=== PATIENT | female | born 1995 | race Caucasian/White ===

== ENCOUNTER 2021-04-07 09:38 | Emergency (ER) | payer SELFPAY ==
[2021-04-07 09:57] LABS: Urine Blood Negative (Negative); Urine Glucose Negative (Negative); Urine Protein Negative (Negative); Urine Specific Gravity 1.025 (1.005-1.030); Urine pH 7.5 (5.0-7.0)
[2021-04-07 10:12] LABS: Urine Specific Gravity/Preg 1.025 (1.005-1.030)
[2021-04-07] MEDS ORDERED: MAGNES/ALUMIN/SIMET 30ML UCUP ONE (10:13)
[2021-04-07] MEDS ORDERED: MORPHINE 4 MG/ML SYR ONE (10:14)
[2021-04-07] MEDS ORDERED: LIDOCAINE VISCOUS 2% SOLN 15 ML UDC ONE (10:14)
[2021-04-07] MEDS ORDERED: ONDANSETRON 4 MG/2 ML VIAL ONE (10:14)
[2021-04-07] MEDS ORDERED: NA CHLORIDE 0.9% 1,000 ML ONE (10:14)
[2021-04-07] MEDS ORDERED: FAMOTIDINE 20 MG/2 ML VIAL IV ONE (10:15)
[2021-04-07 11:00] LABS: Absolute Lymphocytes (CBC) 2.7 K/uL (0.7-4.9); Basophils % 0.4 % (0-1.3); Hematocrit 40.8 % (36.0-45.0); Lymphocytes % 25.7 % (15.3-44.8); MPV 8.5 fL (7.6-11.3); RBC Red Blood Cell Count 4.43 M/uL (3.86-4.86)
[2021-04-07 11:02] LABS: ALT/SGPT 31 U/L (12-78); AST/SGOT 18 U/L (15-37); Albumin 4.1 g/dL (3.4-5.0); Alkaline Phosphatase 70 U/L (45-117); BUN Blood Urea Nitrogen 9 mg/dL (7-18); Bicarbonate 25 mmol/L (21-32); Bilirubin Direct < 0.1 mg/dL (0-0.2); Bilirubin Total 0.3 mg/dL (0.2-1.0); Glucose Level 107 mg/dL (74-106); Lipase 138 U/L (73-393); Potassium 3.7 mmol/L (3.5-5.1); Protein, Total 7.6 g/dL (6.4-8.2); Sodium Level 142 mmol/L (136-145)
--- NOTE | 2021-04-07 12:14 | RAD REPORT ---
EXAM DESCRIPTION: CTAbdomen Pelvis W Contrast - 04/07/2021 11:41 am CLINICAL HISTORY: Abdominal pain. ABD PAIN COMPARISON: No comparisons TECHNIQUE: Biphasic CT imaging of the abdomen and pelvis was performed with 100 ml non-ionic IV cont rast. All CT scans are performed using dose optimization technique as appropriate and may include automated exposure control or mA/KV adjustment according to patient size. FINDINGS: The lung bases are clear. The liver, spleen, pancreas, adrenal glands and kidneys are within normal limits. No bowel obstruction, free air, free fluid or abscess. Appendectomy clips. No evidence of significa nt lymphadenopathy. No suspicious bony findings. IMPRESSION: No acute intra-abdominal or pelvic finding.
--- NOTE | 2021-04-07 12:19 | ER ---
Nurse's Notes [facility] Name: Yolette Ku Age: 26 yrs Sex: Female : 1995 Arrival Date: 04/07/2021 Time: 09:40 Bed 8 Private MD: Diagnosis: Upper abdominal pain, unspecified Presentation: 04/07 10:03 Chief complaint: Patient states: EPIGASTRIC PAIN, WORSE WHEN EATING. Coronavirus bp screen: At this time, the client does not indicate any symptoms associated with coronavirus-19. Ebola Screen: No symptoms or risks identified at this time. Initial Sepsis Screen: Does the patient meet any 2 criteria? No. Patient's initial sepsis screen is negative. Does the patient have a suspected source of infection? No. Patient's initial sepsis screen is negative. Risk Assessment: Do you want to hurt yourself or someone else? Patient reports no desire to harm self or others. Onset of symptoms is unknown. 10:03 Method Of Arrival: Ambulatory bp 10:03 Acuity: JIM 3 bp Triage Assessment: 10:10 General: Appears in no apparent distress. uncomfortable, Behavior is cooperative, bp appropriate for age, anxious. Pain: Complains of pain in epigastric area, right upper quadrant and left upper quadrant. EENT: No signs and/or symptoms were reported regarding the EENT system. Neuro: Level of Consciousness is awake, alert, obeys commands, Oriented to Appropriate for age. Cardiovascular: No deficits noted. Respiratory: No deficits noted. GI: Reports upper abdominal pain. : No signs and/or symptoms were reported regarding the genitourinary system. Derm: No deficits noted. Musculoskeletal: No deficits noted. Historical: - Allergies: 10:10 Dilaudid; bp 10:10 Vicodin; bp - Immunization history:: Adult Immunizations up to date. - Social history:: Smoking status: Patient reports the use of cigarette tobacco products, denies chronic smoking, but will smoke occasionally, Patient/guardian denies using alcohol, street drugs, The patient lives with family. - Family history:: not pertinent. Screenin:10 Abuse screen: Denies threats or abuse. Denies injuries from another. Nutritional bp screening: No deficits noted. Tuberculosis screening: No symptoms or risk factors identified. Fall Risk None identified. Assessment: 10:10 General: SEE TRIAGE NOTE. bp 11:23 Reassessment: No changes from previously documented assessment. Patient and/or family bp updated on plan of care and expected duration. Pain level reassessed. CT PENDING. 12:36 Reassessment: PT D/C HOME AMBULATORY, DX WITH GEN ABDOMINAL PAIN. bp Vital Signs: 10:03 BP 132 / 61; Pulse 93; Resp 16; Temp 97.4; Pulse Ox 98% ; Weight 74.84 kg; Height 5 ft. bp (152.40 cm); 11:22 BP 107 / 65; Pulse 69; Resp 17; Pulse Ox 98% ; bp 12:34 BP 107 / 53; Pulse 71; Resp 17; Temp 97.5; Pulse Ox 99% ; bp 10:03 Body Mass Index 32.22 (74.84 kg, 152.40 cm) bp ED Course: 09:40 Patient arrived in ED. ds1 09:50 Marycarmen Duran MD is Attending Physician. ma2 10:02 Peng Orantes, FAVIOLA is Primary Nurse. bp 10:02 Urine --Ancillary (enter results) Sent. eb 10:08 Triage completed. bp 10:10 Patient has correct armband on for positive identification. Bed in low position. Call bp light in reach. Side rails up X2. 10:10 Arm band placed on. bp 10:30 Inserted saline lock: 20 gauge in right forearm, using aseptic technique. Blood bp collected. 11:41 CT Abd/Pelvis - IV Contrast Only In Process Unspecified. EDMS 12:18 Monroe Murrell MD is Referral Physician. ma2 12:36 No provider procedures requiring assistance completed. IV discontinued, intact, bp bleeding controlled, No redness/swelling at site. Pressure dressing applied. Administered Medications: 10:30 Drug: morphine 4 mg Route: IVP; Site: right forearm; bp 12:37 Follow up: Response: Pain is decreased bp 10:30 Drug: Zofran (Ondansetron) 4 mg Route: IVP; Site: right forearm; bp 12:37 Follow up: Response: No adverse reaction; Nausea is decreased bp 10:30 Drug: GI Cocktail without - (Maalox Suspension 30 ml, Lidocaine Liquid 2 % 15 bp ml) Route: PO; 12:38 Follow up: Response: No adverse reaction bp 10:30 Drug: Pepcid (famotidine) 20 mg Route: IVP; Site: right forearm; bp 12:38 Follow up: Response: No adverse reaction bp 10:30 Drug: NS 0.9% 1000 ml Route: IV; Rate: 1 bolus; Site: right forearm; bp 12:37 Follow up: IV Status: Completed infusion; IV Intake: 1000ml bp Intake: 12:37 IV: 1000ml; Total: 1000ml. bp Outcome: 12:18 Discharge ordered by MD. olson 12:36 Discharged to home ambulatory. bp 12:36 Condition: stable 12:36 Discharge instructions given to patient, Instructed on discharge instructions, follow up and referral plans. medication usage, Demonstrated understanding of instructions, follow-up care, medications, Prescriptions given X 2. 12:38 Patient left the ED. bp Signatures: Dispatcher [employer] EDMI Sharonda Angeles Brian, RN RN Marycarmen Lynch MD MD ma2 Cori Sexton
--- NOTE | 2021-04-07 12:19 | EDPHYS ---
Physician Documentation [facility] Name: Yolette Ku Age: 26 yrs Sex: Female : 1995 Arrival Date: 04/07/2021 Time: 09:40 Bed 8 Private MD: ED Physician Marycarmen Duran HPI: 04/07 11:58 This 26 yrs old Female presents to ER via Ambulatory with complaints of ma2 Abdominal Pain, Chest Pain. 11:58 The patient or guardian reports chest pain that is located primarily in the epigastric ma2 area. Associated signs and symptoms: Pertinent negatives: cough, headache, lightheadedness, near syncope, shortness of breath, vomiting. Associated signs and symptoms: Pertinent positives: abdominal pain. Duration: The patient or guardian reports a single episode. Severity of pain: At its worst the pain was moderate in the emergency department the pain is unchanged. The patient has not experienced similar symptoms in the past. Historical: - Allergies: 10:10 Dilaudid; bp 10:10 Vicodin; bp - Immunization history:: Adult Immunizations up to date. - Social history:: Smoking status: Patient reports the use of cigarette tobacco products, denies chronic smoking, but will smoke occasionally, Patient/guardian denies using alcohol, street drugs, The patient lives with family. - Family history:: not pertinent. ROS: 11:58 Constitutional: Negative for fever, chills, and weight loss. ma2 11:58 All other systems are negative. Exam: 11:58 Constitutional: This is a well developed, well nourished patient who is awake, alert, ma2 and in no acute distress. Head/Face: Normocephalic, atraumatic. Eyes: Pupils equal round and reactive to light, extra-ocular motions intact. Lids and lashes normal. Conjunctiva and sclera are non-icteric and not injected. Cornea within normal limits. Periorbital areas with no swelling, redness, or edema. ENT: Nares patent. No nasal discharge, no septal abnormalities noted. Tympanic membranes are normal and external auditory canals are clear. Oropharynx with no redness, swelling, or masses, exudates, or evidence of obstruction, uvula midline. Mucous membranes moist. Neck: Trachea midline, no thyromegaly or masses palpated, and no cervical lymphadenopathy. Supple, full range of motion without nuchal rigidity, or vertebral point tenderness. No Meningismus. Chest/axilla: Normal chest wall appearance and motion. Nontender with no deformity. No lesions are appreciated. Cardiovascular: Regular rate and rhythm with a normal S1 and S2. No gallops, murmurs, or rubs. Normal PMI, no JVD. No pulse deficits. Respiratory: Lungs have equal breath sounds bilaterally, clear to auscultation and percussion. No rales, rhonchi or wheezes noted. No increased work of breathing, no retractions or nasal flaring. Abdomen/GI: Soft, non-tender, with normal bowel sounds. No distension or tympany. No guarding or rebound. No evidence of tenderness throughout. Back: No spinal tenderness. No costovertebral tenderness. Full range of motion. Skin: Warm, dry with normal turgor. Normal color with no rashes, no lesions, and no evidence of cellulitis. MS/ Extremity: Pulses equal, no cyanosis. Neurovascular intact. Full, normal range of motion. Neuro: Awake and alert, GCS 15, oriented to person, place, time, and situation. Cranial nerves II-XII grossly intact. Motor strength 5/5 in all extremities. Sensory grossly intact. Cerebellar exam normal. Normal gait. Vital Signs: 10:03 BP 132 / 61; Pulse 93; Resp 16; Temp 97.4; Pulse Ox 98% ; Weight 74.84 kg; Height 5 ft. bp (152.40 cm); 11:22 BP 107 / 65; Pulse 69; Resp 17; Pulse Ox 98% ; bp 12:34 BP 107 / 53; Pulse 71; Resp 17; Temp 97.5; Pulse Ox 99% ; bp 10:03 Body Mass Index 32.22 (74.84 kg, 152.40 cm) bp MDM: 09:50 Patient medically screened. ma2 11:58 Differential diagnosis: anxiety, costochondritis, esophagitis, gastritis. Data ma2 reviewed: vital signs, nurses notes. 12:17 Counseling: I had a detailed discussion with the patient and/or guardian regarding: the ma2 historical points, exam findings, and any diagnostic results supporting the discharge/admit diagnosis, the presence of at least one elevated blood pressure reading (>120/80) during this emergency department visit, the need for outpatient follow up. 04/07 09:56 Order name: Urine Dipstick-Ancillary; Complete Time: 11:21 EDMS 04/07 09:58 Order name: Urine --Ancillary (enter results) eb 04/07 09:58 Order name: Urine --Ancillary; Complete Time: 11:21 EDMS 04/07 10:03 Order name: Basic Metabolic Panel; Complete Time: 11:21 ma2 04/07 10:03 Order name: CBC with Diff; Complete Time: 11:21 ma2 04/07 10:03 Order name: Hepatic Function; Complete Time: 11:21 ma2 04/07 09:51 Order name: Urine Dipstick-Ancillary (obtain specimen); Complete Time: 10:02 ma2 04/07 10:03 Order name: CT Abd/Pelvis - IV Contrast Only; Complete Time: 12:17 ma2 04/07 10:03 Order name: Lipase; Complete Time: 11:21 ma2 04/07 09:51 Order name: Urine Test (obtain specimen); Complete Time: 10:02 tx2 04/07 10:03 Order name: IV Saline Lock; Complete Time: 10:31 ma2 04/07 10:03 Order name: Labs collected and sent; Complete Time: 10:32 ma2 Administered Medications: 10:30 Drug: morphine 4 mg Route: IVP; Site: right forearm; bp 12:37 Follow up: Response: Pain is decreased bp 10:30 Drug: Zofran (Ondansetron) 4 mg Route: IVP; Site: right forearm; bp 12:37 Follow up: Response: No adverse reaction; Nausea is decreased bp 10:30 Drug: GI Cocktail without - (Maalox Suspension 30 ml, Lidocaine Liquid 2 % 15 bp ml) Route: PO; 12:38 Follow up: Response: No adverse reaction bp 10:30 Drug: Pepcid (famotidine) 20 mg Route: IVP; Site: right forearm; bp 12:38 Follow up: Response: No adverse reaction bp 10:30 Drug: NS 0.9% 1000 ml Route: IV; Rate: 1 bolus; Site: right forearm; bp 12:37 Follow up: IV Status: Completed infusion; IV Intake: 1000ml bp Disposition Summary: 04/07/21 12:18 Discharge Ordered Location: Home ma2 Condition: Stable ma2 Diagnosis - Upper abdominal pain, unspecified ma2 Followup: ma2 - With: Private Physician - When: Tomorrow - Reason: Continuance of care Followup: ma2 - With: Monroe Murrell MD - When: Tomorrow - Reason: Continuance of care Discharge Instructions: - Discharge Summary Sheet ma2 - Abdominal Pain, Adult ma2 Forms: - Medication Reconciliation Form ma2 - Thank You Letter ma2 - Antibiotic Education ma2 - Prescription Opioid Use ma2 Prescriptions: - Pepcid 20 mg Oral Tablet - take 1 tablet by ORAL route every 12 hours for 10 days; 20 tablet; Refills: 0, ma2 Product Selection Permitted - Zofran 4 mg Oral Tablet - take 1 tablet by ORAL route every 12 hours As needed; 20 tablet; Refills: 0, ma2 Product Selection Permitted Signatures: Dispatcher [employer] Peng Miller, RN RN Marycarmen Lynch MD MD ma2
[2021-04-07 12:47] VITALS: BP 107/53; TEMP 97.5; O2SAT 99
== END 2021-04-07 12:38 | disposition home or self-care (01) ==
LOC: ER 09:38
DX: R10.13 Epigastric pain (principal); F17.210 Nicotine dependence, cigarettes, uncomplicated; Z88.5 Allergy status to narcotic agent
CPT/HCPCS: 36415; 74177; 80048; 80076; 81003; 81025; 83690; 85025; 96361; 96374; 96375; 99284; J2405; J7030; Q9967

== ENCOUNTER 2021-06-09 17:40 | Emergency (ER) | payer SELFPAY ==
--- OUTSIDE RECORDS SUMMARY | 2021-06-09 17:43 | XMS REPORT | Continuity of Care Document ---
:1995 Author Organization [facility] t Address [address] [place] [address] Care Team Providers Name Role Phone PCP, DOES NOT HAVE A Primary Care Physician Unavailable AMINA S Attending Clinician Unavailable Amina PAC, S Attending Clinician Curtis HUYNH Admitting Clinician Unavailable Problems This patient has no known problems. Allergies, Adverse Reactions, Alerts Allergy Allergy Status Severity Reaction(s) Onset Inactive Treating Comm ents Source Name Type Date Date Clinician Hydromor Propensi Active Itching 2020-06 Unive rs phone ty to 2-14 ity of adverse 00:00: [place] reaction 00 Medical s Branch Hydrocod Propensi Active Itching 2020-06 Unive rs one ty to 2-14 ity of adverse 00:00: [place] reaction 00 Medical s Branch HYDROCOD DRUG Active ITCHING 2020-06 Univers ONE INGREDI 2-14 ity of 00:00: [place] 00 Medical Branch HYDROMOR DRUG Active ITCHING 2020-06 Univers PHONE INGREDI 2-14 ity of 00:00: [place] 00 Medical Branch NO KNOWN Drug Active Univers ALLERGIE Class ity of S [facility] Social History Social Habit Start Date Stop Date Quantity Comments Source Exposure to Unable to assess Univers ity of SARS-CoV-2 [facility] (event) [place] Sex Assigned At [birth year] Universit y of 00:00:00 00:00:00 [facility] Smoking Status Start Date Stop Date Source Unknown if ever smoked [facility] [place] [facility] [place] Medications Ordered Filled Start Stop Current Ordering Indication Dosage Frequency Signature Comments Components Source Medication Medication Date Date Medication? Clinician (SIG) Name Name ondansetron 2020-06 No 4mg 4 mg, [facility] ers (ZOFRAN-ODT -05-17 Oral, ity of ) 02:15: 02:02 ONCE, 1 [place] disintegrat 00 :00 dose, On Medi mary ing tablet Tue Branch 4 mg 05/16/21 at 2015, Routine acetaminoph 2020-06 No 1{tbl} 1 tablet, [facility] en-codeine 07-18 Oral, ity of (TYLENOL 02:00: 02:02 ONCE, 1 [place] #3) 300-30 00 :00 dose, On Medic al mg tablet 1 e Branch tablet 05/16/21 at 1999, LEILANI naproxen 2020-06 No 500mg 500 mg, [facility] ers (NAPROSYN) 07-18 Oral, ity of tablet 500 02:00: 02:02 ONCE, 1 Omar as mg 00 :00 dose, On Medical e Branch 05/16/21 at 1999, Routine acetaminoph 2020-06 Yes [id number] 1{tbl} Take 1 Un aristides en-codeine 2-14 tablet by ity of 300-30 mg 00:00: mouth [place] tablet 00 every 4 Medical (four) Branch hours as needed for Pain (scale 4-6). Indication s: acute pain naproxen 2020-06 Yes [id number] 500mg Take 1 U nivers (NAPROSYN) 2-14 tablet by ity of 500 mg 00:00: mouth 2 [place] tablet 00 (two) Medical times Branch daily with meals. Vital Signs Vital Name Observation Time Observation Value Comments Source Systolic blood 2021-05-17 00:35:00 121 mm[Hg] [facility] sity of pressure [facility] Diastolic blood 2021-05-17 00:35:00 62 mm[Hg] [facility] 2021-05-17 00:35:00 69 /min General acute hospital Body temperature 2021-05-17 00:35:00 36.78 [facility] Respiratory rate 2021-05-17 00:35:00 18 /min [facility] Body height 2021-05-17 00:35:00 152.4 cm General acute hospital Body weight 2021-05-17 00:35:00 75.297 kg General acute hospital BMI 2021-05-17 00:35:00 32.42 kg/m2 General acute hospital Oxygen saturation in 2021-05-17 00:35:00 100 /min [facility] blood by [facility] Pulse oximetry Branch Procedures Procedure Date / Time Performed Performing Clinician Yue e POCT TEST 2021-05-17 01:56:00 Waleska Huynh [facility] acute hospital XR LUMBAR SPINE 2 VW 2021-05-17 01:22:16 Waleska Huynh [facility] NOTICE OF PRIVACY 2021-05-17 00:03:46 Doctor Unassigned, No Univ [facility] Name [facility] CONSENT/REFUSAL FOR 2021-05-16 23:58:30 Doctor Unassigned, No [facility] TREATMENT Encounters Start End Encounter Admission Attending Care Care Encounter Source Date/Time Date/Time Type Type Clinicians Facility Department ID 2021-05-16 2021-05-16 [id number] Univers 18:37:00 21:15:00 [facility] 2021-05-16 2021-05-16 [facility] [id number] Univers 18:37:00 21:15:00 Waleska Acevedo [place] [id number] i [facility] [id number] [facility] [id number] [facility] 084 Branch Results Test Description Test Time Test Comments Results Result Comments Source POCT TEST 2021-05-17 01:56:00 Test Item Value Reference Range Interpretation Comme nts POCT PREG (test code = 1605) negative On board controls acceptable with C Line (test code = 3574) present POCT PREG LOT # (test code = 3575) [id number] POCT PREG TEST DATE (test code = 3576) 07/03/2022 Lab Interpretation (test code = 45968-3) Normal [facility]
[2021-06-09 20:07] LABS: SARS-COV-2 RT PCR NEGATIVE (NEGATIVE)
--- NOTE | 2021-06-09 21:39 | ER ---
Nurse's Notes [facility] Name: Yolette Ku Age: 26 yrs Sex: Female : 1995 Arrival Date: 06/09/2021 Time: 17:43 Bed 22 Private MD: Diagnosis: Nasal congestion Presentation: 06/09 18:04 Chief complaint: Patient states: i went to work and they told me i couldn't work tw2 because i have covid symptoms. i have a headache and stomach ache. i was around someone sick with covid. Coronavirus screen: headache, vomiting. Ebola Screen: Patient denies travel to an Ebola-affected area in the 21 days before illness onset. Initial Sepsis Screen: Does the patient meet any 2 criteria? No. Patient's initial sepsis screen is negative. Does the patient have a suspected source of infection? No. Patient's initial sepsis screen is negative. Risk Assessment: Do you want to hurt yourself or someone else? Patient reports no desire to harm self or others. Onset of symptoms was June 09, 2021. 18:04 Method Of Arrival: Ambulatory tw2 18:04 Acuity: JIM 3 tw2 18:07 Chief complaint: Patient states: i think my stomach pain is an acid thing. last time i tw2 went to the hospital about it was acid reflux. Triage Assessment: 18:07 General: Appears in no apparent distress. Behavior is calm, cooperative, appropriate tw2 for age. Pain: Denies pain. Historical: - Allergies: 18:07 Dilaudid; tw2 18:07 Vicodin; tw2 - Home Meds: 18:07 None [Active]; tw2 - PMHx: 18:07 None; tw2 - PSHx: 18:07 Appendectomy; ear tubes; Cholecystectomy; section; tw2 - Immunization history:: Client reports receiving the 2nd dose of the Covid vaccine, Flu vaccine is not up to date. - Social history:: Smoking status: Patient reports the use of cigarette tobacco products, smokes one-half pack cigarettes per day. Screenin:31 Abuse screen: Denies threats or abuse. Nutritional screening: No deficits noted. vc1 Tuberculosis screening: No symptoms or risk factors identified. Fall Risk None identified. Assessment: 21:30 General: Appears in no apparent distress. ill, Behavior is calm, cooperative, vc1 appropriate for age. Pain:. 21:30 Pain: Complains of pain in top of head, forehead, right advent, left advent and abdomen.vc1 21:31 Neuro: No deficits noted. Cardiovascular: No deficits noted. Respiratory: No deficits vc1 noted. Denies cough, shortness of breath. Vital Signs: 18:04 BP 111 / 61; Pulse 82; Resp 17; Temp 97.9(TE); Pulse Ox 100% on R/A; tw2 ED Course: 17:43 Patient arrived in ED. as 18:06 Triage completed. tw2 18:06 Arm band placed on. tw2 19:15 Sung Vizcarra PA is PHCP. cp 19:15 Lamberto Eng MD is Attending Physician. cp 21:31 No provider procedures requiring assistance completed. Patient did not have IV access vc1 during this emergency room visit. Administered Medications: No medications were administered Outcome: 21:32 Discharged to home ambulatory. vc1 21:32 Condition: good 21:39 Discharge ordered by MD. cp 21:56 Discharge instructions given to patient, Instructed on discharge instructions, follow vc1 up and referral plans. Demonstrated understanding of instructions, follow-up care. 21:56 Patient left the ED. vc1 Signatures: Mary Martinez as Sung Vizcarra PA PA cp Sangiat Roy RN RN tw2 Lindsey Orellana RN RN vc1 Corrections: (The following items were deleted from the chart) 18:09 18:04 Acuity: JIM 4 tw2 tw2
--- NOTE | 2021-06-09 21:39 | EDPHYS ---
Physician Documentation [facility] Name: Yolette Ku Age: 26 yrs Sex: Female : 1995 Arrival Date: 06/09/2021 Time: 17:43 Bed 22 Private MD: ED Physician Lamberto Eng HPI: 06/09 21:35 This 26 yrs old Female presents to ER via Ambulatory with complaints of r/o covid. cp 21:35 The patient presents with sinus and nasal congestion. cp 21:35 Onset: The symptoms/episode began/occurred yesterday. Associated signs and symptoms: cp Pertinent positives: headache, Pertinent negatives: cough, ear ache, fever, sore throat. Severity of symptoms: in the emergency department the symptoms are unchanged. Historical: - Allergies: 18:07 Dilaudid; tw2 18:07 Vicodin; tw2 - Home Meds: 18:07 None [Active]; tw2 - PMHx: 18:07 None; tw2 - PSHx: 18:07 Appendectomy; ear tubes; Cholecystectomy; section; tw2 - Immunization history:: Client reports receiving the 2nd dose of the Covid vaccine, Flu vaccine is not up to date. - Social history:: Smoking status: Patient reports the use of cigarette tobacco products, smokes one-half pack cigarettes per day. ROS: 21:36 Constitutional: Negative for body aches, chills, fever, poor PO intake. cp 21:36 Eyes: Negative for injury, pain, redness, and discharge. cp 21:36 ENT: Positive for sinus congestion, Negative for drainage from ear(s), ear pain, difficulty swallowing, difficulty handling secretions. 21:36 Respiratory: Negative for cough, shortness of breath, wheezing. 21:36 Abdomen/GI: Negative for abdominal pain, nausea, vomiting, and diarrhea. 21:36 : Negative for urinary symptoms. 21:36 Neuro: Positive for headache, Negative for altered mental status, weakness. 21:36 All other systems are negative. Exam: 21:37 Head/Face: Normocephalic, atraumatic. cp 21:37 Constitutional: The patient appears in no acute distress, alert, awake, non-toxic, well developed, well nourished. 21:37 Eyes: Periorbital structures: appear normal, Conjunctiva: normal, no exudate, no injection, Sclera: no appreciated abnormality, Lids and lashes: appear normal, bilaterally. 21:37 ENT: External ear(s): are unremarkable, Ear canal(s): are normal, clear, TM's: dullness, bilaterally, Nose: is normal, Posterior pharynx: Airway: no evidence of obstruction, patent. 21:37 Neck: Lymph nodes: no appreciated lymphadenopathy. 21:37 Chest/axilla: Inspection: normal. 21:37 Cardiovascular: Rate: normal. 21:37 Respiratory: the patient does not display signs of respiratory distress, Respirations: normal, no use of accessory muscles, no retractions, labored breathing, is not present. 21:37 Neuro: Orientation: to person, place \\T\\ time. Mentation: is normal, Motor: moves all fours, strength is normal, Sensation: is normal. Vital Signs: 18:04 BP 111 / 61; Pulse 82; Resp 17; Temp 97.9(TE); Pulse Ox 100% on R/A; tw2 MDM: 21:31 Patient medically screened. cp 21:35 Differential diagnosis: sinusitis, influenza, COVID-19. cp 21:38 Data reviewed: vital signs, nurses notes, lab test result(s). Counseling: I had a cp detailed discussion with the patient and/or guardian regarding: the historical points, exam findings, and any diagnostic results supporting the discharge/admit diagnosis, lab results, to return to the emergency department if symptoms worsen or persist or if there are any questions or concerns that arise at home. 06/09 18:09 Order name: COVID-19/FLU A+B (Document "Date of Onset" if Symptomatic); Complete Time: tw2 21:32 Administered Medications: No medications were administered Disposition: 23:39 Co-signature as Attending Physician, Lamberto Eng MD I agree with the assessment and kdr plan of care. Disposition Summary: 06/09/21 21:39 Discharge Ordered Location: Home cp Problem: new cp Symptoms: are unchanged cp Condition: Stable cp Diagnosis - Nasal congestion cp Followup: cp - With: Private Physician - When: 2 - 3 days - Reason: Worsening of condition Discharge Instructions: - Sinus Headache cp - How to Perform a Sinus Rinse cp - Discharge Summary Sheet tw2 Forms: - Medication Reconciliation Form cp - Thank You Letter cp - Antibiotic Education cp - Work release form tw2 - Prescription Opioid Use cp Signatures: Dispatcher [employer] EDMS Lamberto Eng MD MD kdr Page, Corey, PA PA cp Wise, Tara RN RN tw2
[2021-06-09 22:18] VITALS: BP 111/61; TEMP 97.9; O2SAT 100
== END 2021-06-09 21:56 | disposition home or self-care (01) ==
LOC: ER 17:40
DX: R09.81 Nasal congestion (principal); Z88.6 Allergy status to analgesic agent; F17.210 Nicotine dependence, cigarettes, uncomplicated; Z20.822 Contact with and (suspected) exposure to COVID-19
CPT/HCPCS: 0240U; 99281

== ENCOUNTER 2021-08-31 23:40 | Emergency (ER) | payer SELFPAY ==
--- OUTSIDE RECORDS SUMMARY | 2021-09-01 01:31 | XMS REPORT | Continuity of Care Document ---
:1995 Author Organization [facility] t Address [address] [place] [address] Care Team Providers Name Role Phone PCP, [...] Active Univers ALLERGIE Class ity of S [facility] Social History Social Habit Start Date Stop Date Quantity Comments Source Exposure to Unable to assess Univers ity of SARS-CoV-2 [facility] (event) M[place] Sex Assigned At [birth year] Universit y of 00:00:00 00:00:00 [facility] Smoking Status Start Date Stop Date Source Unknown if ever smoked [facility] [place] [facility] Medications Ordered Filled Start Stop Current Ordering Indication Dosage Frequency Signature Comments Components Source Medication Medication Date Date Medication? Clinician (SIG) Name Name ondansetron 2020-06 No 4mg 4 mg, [facility] ers (ZOFRAN-ODT -05-17 Oral, ity of ) 02:15: 02:02 ONCE, 1 [place] disintegrat 00 :00 dose, On Medi mary ing tablet Tue Branch 4 mg 05/16/21 at 2015, Routine acetaminoph 2020-06 No 1{tbl} 1 tablet, [facility] en-codeine 07-18 Oral, ity of (TYLENOL 02:00: 02:02 ONCE, 1 [place] #3) 300-30 00 :00 dose, On Medic al mg tablet 1 e Branch tablet 05/16/21 at 1999, LEILANI naproxen 2020-06 No 500mg 500 mg, [facility] ers (NAPROSYN) 07-18 Oral, ity of tablet [...] Indication s: acute pain naproxen 2020-06 Yes [id number] 500mg Take 1 U nivers (NAPROSYN) 2-14 tablet by ity of 500 mg 00:00: mouth 2 [place] tablet 00 (two) Medical times Branch daily with meals. Vital Signs Vital Name Observation Time Observation Value Comments Source Systolic blood 2021-05-17 00:35:00 121 mm[facility]Hg] [facility] Diastolic blood 2021-05-17 00:35:00 62 mm[Hg] [facility] 2021-05-17 00:35:00 69 /min [facility] Body temperature 2021-05-17 00:35:00 36.78 Patti [facility] Respiratory rate 2021-05-17 00:35:00 18 /min [facility] Body height 2021-05-17 00:35:00 152.4 cm [facility] Body weight 2021-05-17 00:35:00 75.297 kg [facility] BMI 2021-05-17 00:35:00 32.42 kg/m2 [facility] Oxygen saturation in 2021-05-17 00:35:00 100 /min [facility] blood by [facility] Pulse oximetry Branch Procedures Procedure Date / Time Performed Performing Clinician Yue e POCT TEST 2021-05-17 01:56:00 Waleska Huynh [facility] XR LUMBAR SPINE 2 VW 2021-05-17 01:22:16 Waleska Huynh [facility] NOTICE OF PRIVACY 2021-05-17 00:03:46 Doctor Unassigned, No Univ [facility] Name [facility] CONSENT/REFUSAL FOR 2021-05-16 23:58:30 Doctor Unassigned, No [facility] TREATMENT Encounters Start End Encounter Admission Attending Care Care Encounter Source Date/Time Date/Time Type Type Clinicians Facility Department ID 2021-05-16 2021-05-16 [facility] [id number] Univers 18:37:00 21:15:00 [facility] 2021-05-16 2021-05-16 [facility] [id number] Univers 18:37:00 21:15:00 Waleska Acevedo [place] [id number] i [facility] [id number] [facility] [id number] [facility] 084 Branch Results Test Description Test Time Test Comments Results Result Comments Source POCT TEST 2021-05-17 01:56:00 Test Item Value Reference Range Interpretation Comme nts POCT PREG (test code = 1605) negative On board controls acceptable with C Line (test code = 3574) present POCT PREG LOT # (test code = 3575) [id number] POCT PREG TEST DATE (test code = 3576) 07/03/2022 Lab Interpretation (test code = 60427-2) Normal [facility]
--- NOTE | 2021-09-01 03:53 | ER ---
Nurse's Notes [facility] Name: Yolette Ku Age: 26 yrs Sex: Female : 1995 Arrival Date: 08/31/2021 Time: 23:49 Bed 5 Private MD: Diagnosis: Presentation: 09/01 00:16 Chief complaint: Patient states: "I have been dealing with this headache for 4 days. I tw5 have tried drinking plenty of water, sleeping it off. It is a really hard pounding. Every time I close my eye it throbs.". Coronavirus screen: Vaccine status: Patient reports receiving the 2nd dose of the covid vaccine. Moderna. Ebola Screen: Patient negative for fever greater than or equal to 101.5 degrees Fahrenheit, and additional compatible Ebola Virus Disease symptoms Patient denies exposure to infectious person. Patient denies travel to an Ebola-affected area in the 21 days before illness onset. Initial Sepsis Screen: Does the patient meet any 2 criteria? No. Patient's initial sepsis screen is negative. Does the patient have a suspected source of infection? No. Patient's initial sepsis screen is negative. Risk Assessment: Do you want to hurt yourself or someone else? Patient reports no desire to harm self or others. Onset of symptoms was August 29, 2021. 00:16 Method Of Arrival: Ambulatory tw5 00:16 Acuity: JIM 3 tw5 Triage Assessment: 00:17 Headache History: The patient has had previous headaches and this one is more severe tw5 than previous episodes. General: Appears uncomfortable, Behavior is calm, cooperative, appropriate for age. Pain: Pain currently is 8 out of 10 on a pain scale. Pain began 2-3 days ago. Also complains of photophobia. Neuro: Level of Consciousness is awake, alert, obeys commands, Oriented to person, place, time, situation, Dust Mixer are equal bilaterally Moves all extremities. 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 - Social history:: Smoking status: Patient reports the use of cigarette tobacco products, smokes one pack cigarettes per day. Vital Signs: 00:16 BP 117 / 62; Pulse 80; Resp 18; Temp 98(O); Pulse Ox 99% on R/A; Weight 72.57 kg; tw5 Height 5 ft. (152.40 cm); Pain 8/10; 00:16 Body Mass Index 31.25 (72.57 kg, 152.40 cm) tw5 ED Course: 08/31 23:49 Patient arrived in ED. kc5 09/01 00:17 Triage completed. tw5 00:17 Arm band placed on right wrist. tw5 Administered Medications: No medications were administered Outcome: 00:58 Patient left the ED. tk1 Signatures: Mar Young tw5 Lisette Singer kc5 Leah Muñoz tk1
[2021-09-01 06:09] VITALS: BP 117/62; TEMP 98; O2SAT 99
== END 2021-09-01 00:58 | disposition left against medical advice (07) ==
LOC: ER 23:40
DX: Z53.21 Procedure and treatment not carried out due to patient leaving prior to being seen by health care provider (principal)
CPT/HCPCS: 99281

== ENCOUNTER 2021-09-11 18:59 | Emergency (ER) | payer SELFPAY ==
--- OUTSIDE RECORDS SUMMARY | 2021-09-11 19:01 | XMS REPORT | Continuity of Care Document ---
:1995 Author Organization [facility] t Address [address] [place] [address] Care Team Providers Name Role Phone PCP, DOES NOT HAVE A Primary Care Physician Unavailable Curtis HUYNH Attending Clinician Unavailable Bhakti PAC, S Attending Clinician Curtis HUYNH Admitting [...] Active Univers ALLER[facility]IE Class ity of S [facility] [place] Social History Social Habit Start Date Stop Date Quantity Comments Source Exposure to Unable to assess Univers ity of SARS-CoV-2 [facility] (event) [place] Sex Assigned At [birth year] Universit y of 00:00:00 00:00:[address] [facility] [place] Smoking Status Start Date Stop Date Source Unknown if ever smoked [facility] [place] [facility] [place] Medications Ordered Filled Start Stop Current Ordering Indication Dosage Frequency Signature Comments Components Source Medication Medication Date Date Medication? Clinician (SIG) Name Name ondansetron 2020-06 No 4mg 4 mg, [facility] ers (ZOFRAN-ODT -05-17 Oral, ity of ) 02:15: 02:02 ONCE, 1 [place] disintegrat 00 :00 dose, On Medi mary ing tablet Tue Branch 4 mg 05/16/21 at 2014, Routine acetaminoph 2020-06 No 1{tbl} 1 tablet, Univers en-codeine 07-18 Oral, ity of (TYLENOL 02:00: 02:02 ONCE, 1 [place] #3) 300-30 00 :00 dose, On Medic al mg tablet 1 Tue Branch tablet 05/16/21 at 1999, LEILANI naproxen 2020-06 No 500mg [address] mg, [facility] ers (NAPROSYN) -05-17 Oral, ity of tablet 500 02:00: 02:02 ONCE, 1 [place] as mg 00 :00 dose, On Medical Tue Branch 05/16/21 at 1999, Routine acetaminoph 2020-06 Yes [id number] 1{tbl} Take 1 Un [facility] en-codeine 2-14 tablet by ity of 300-30 mg 00:00: mouth [place] tablet 00 every 4 Medical (four) Branch hours as needed for Pain (scale 4-6). Indication s: acute pain naproxen 2020-06 Yes [id number] 500mg Take 1 U nivers (NAPROSYN) 2-14 tablet by ity of 500 mg 00:00: mouth 2 [place] tablet 00 (two) Medical times Branch daily with meals. Vital Signs Vital Name Observation Time Observation Value Comments Source Systolic blood 2021-05-17 00:35:00 121 mm[Hg] [facility] sity of pressure [facility] [place] Diastolic blood 2021-05-17 00:35:00 62 mm[Hg] [facility] Heart rate 2021-05-17 00:35:00 69 /min [facility] Body temperature 2021-05-17 00:35:00 36.78 Patti [facility] Respiratory rate 2021-05-17 00:35:00 18 /min [facility] Body height 2021-05-17 00:35:00 152.4 cm [facility] Body weight 2021-05-17 00:35:00 75.297 kg [facility] BMI 2021-05-17 00:35:00 32.42 kg/m2 [facility] Oxygen saturation in 2021-05-17 00:35:00 100 /min [facility] Arterial blood by [facility] Pulse oximetry Branch Procedures Procedure Date / Time Performed Performing Clinician Yue kulkarni POCT TEST 2021-05-17 01:56:00 Waleska Huynh [facility] XR LUMBAR SPINE 2 VW 2021-05-17 01:22:16 Waleska Huynh [facility] NOTICE OF PRIVACY 2021-05-17 00:03:46 Doctor Unassigned, No Univ [facility] Name [facility] CONSENT/REFUSAL FOR 2021-05-16 23:58:30 Doctor Unassigned, No Un [facility] DIAGNOSIS AND Name [facility] TREATMENT Encounters Start End Encounter Admission Attending Care Care Encounter Source Date/Time Date/Time Type Type Clinicians Facility Department ID 2021-05-16 2021-05-16 Emergency X [facility] ERT [id number] Univers 18:37:00 21:15:00 WALESKA [facility] 2021-05-16 2021-05-[address] [facility] [id number] Univers 18:37:00 21:15:00 Waleska Acevedo [facility] [id number] i [facility] [id number] [facility] [id number] [facility] 084 Branch Results Test Description Test Time Test Comments Results Result Comments Source POCT TEST 2021-05-17 01:56:00 Test Item Value Reference Range Interpretation Comme nts POCT PREG (test code = 1605) negative On board controls acceptable with C Line (test code = 3574) present POCT PREG LOT # (test code = 3575) [id number] POCT PREG TEST DATE (test code = 3576) 07/03/2022 Lab Interpretation (test code = 39419-5) Normal [facility]
[2021-09-11 20:46] LABS: Urine Blood 3+ (Negative); Urine Glucose Negative (Negative); Urine Protein 2+ (Negative); Urine Specific Gravity 1.025 (1.005-1.030)
[2021-09-11 20:52] LABS: Urine Specific Gravity/Preg 1.025 (1.005-1.030)
[2021-09-11] MEDS ORDERED: MORPHINE 4 MG/ML SYR ONE (20:56)
[2021-09-11] MEDS ORDERED: ONDANSETRON 4 MG/2 ML VIAL ONE (20:56)
[2021-09-11] MEDS ORDERED: NA CHLORIDE 0.9% 1,000 ML ONE (20:56)
[2021-09-11 21:01] LABS: Urine RBC 20-50 /HPF (NONE SEEN)
[2021-09-11 21:02] LABS: Urine Bacteria <20 /HPF (<20); Urine Mucus LIGHT /HPF (NONE SEEN)
--- NOTE | 2021-09-11 21:16 | RAD REPORT ---
EXAM DESCRIPTION: CT - Stone Protocol - 09/11/2021 9:10 pm CLINICAL HISTORY: Flank pain. FLANK PAIN COMPARISON: Abdomen Pelvis W Contrast dated 04/07/2021 TECHNIQUE: Axial images were obtained without oral or IV contrast. Lack of contrast limits solid org an and vascular assessment. The [id number] spans the entirety of the system partially obscuring uppermost abdomen and lung bases. Coronal reformatted images were obtained and reviewed. All CT scans are performed using dose optimization technique as appropriate and may include automated exposure control or mA/KV adjustment according to patient size. FINDINGS: The lower lung ruth are clear. Imaged portions of the liver and spleen show no suspicious findings on non-contrast imaging. The panc reas and adrenal glands are normal. No pathologic lymphadenopathy in the abdomen or pelvis. No urinary tract stones or obstructive uropathy. No bowel obstruction, free air, free fluid or abscess. Appendectomy. No significant bony abnormality. IMPRESSION: No urinary tract stones or obstructive uropathy.
[2021-09-11 21:35] LABS: Absolute Lymphocytes (CBC) 3.2 K/uL (0.7-4.9); Hematocrit 36.4 % (36.0-45.0); MPV 8.6 fL (7.6-11.3); RBC Red Blood Cell Count 4.01 M/uL (3.86-4.86)
[2021-09-11 21:57] LABS: ALT/SGPT 24 U/L (12-78); AST/SGOT 9 U/L (15-37); Albumin 3.6 g/dL (3.4-5.0); Alkaline Phosphatase 64 U/L (45-117); BUN Blood Urea Nitrogen 11 mg/dL (7-18); Bicarbonate 25 mmol/L (21-32); Bilirubin Total 0.2 mg/dL (0.2-1.0); Glucose Level 111 mg/dL (74-106); Lipase 188 U/L (73-393); Potassium 3.5 mmol/L (3.5-5.1); Sodium Level 141 mmol/L (136-145)
[2021-09-11] MEDS ORDERED: NA CHLORIDE 0.9% 100 ML IV ONE (21:57)
[2021-09-11] MEDS ORDERED: CEFTRIAXONE 1000 MG/VIAL ONE (21:57)
--- NOTE | 2021-09-11 23:03 | ER ---
Nurse's Notes [facility] Name: Yolette Ku Age: 26 yrs Sex: Female : 1995 Arrival Date: 09/11/2021 Time: 19:02 Bed 17 Private MD: Diagnosis: UTI/ Urinary tract infection, site not specified;Other and unspecified ovarian cysts-right Presentation: 09/11 19:35 Chief complaint: Patient states: C/O L sided pain, ABD pain, states pain shoots down to ll3 L leg, states it hurts when I empty my bladder, since 09/06/21, states pain is 10/10. Coronavirus screen: Vaccine status: Patient reports receiving the 2nd dose of the covid vaccine. At this time, the client does not indicate any symptoms associated with coronavirus-19. Ebola Screen: No symptoms or risks identified at this time. Initial Sepsis Screen: Does the patient meet any 2 criteria? No. Patient's initial sepsis screen is negative. Does the patient have a suspected source of infection? No. Patient's initial sepsis screen is negative. Risk Assessment: Do you want to hurt yourself or someone else? Patient reports no desire to harm self or others. Onset of symptoms was September 06, 2021. 19:35 Method Of Arrival: Ambulatory ll3 19:35 Acuity: JIM 3 ll3 Triage Assessment: 19:38 General: Appears uncomfortable, Behavior is calm, cooperative. Pain: Complains of pain ll3 in anterior aspect of left lateral abdomen Pain radiates to left leg Pain currently is 10 out of 10 on a pain scale. : Reports vaginal bleeding that is spotty, states it is painful to empty bladder. 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 - Social history:: Smoking status: Patient reports the use of cigarette tobacco products, Reported history of juuling and/or vaping. Screenin:39 Abuse screen: Denies threats or abuse. Denies injuries from another. Nutritional tyshawn screening: No deficits noted. Tuberculosis screening: No symptoms or risk factors identified. Fall Risk None identified. Assessment: 21:38 Reassessment: No changes from previously documented assessment. tyshawn 23:31 : Urine is cloudy. tyshawn Vital Signs: 19:35 BP 131 / 50; Pulse 76; Resp 16; Temp 97.8(TE); Pulse Ox 99% on R/A; Weight 74.84 kg ll3 (R); Height 5 ft. 0 in. (152.40 cm) (R); Pain 10/10; 23:30 BP 121 / 65; Pulse 72; Resp 18; Temp 98.5; Pulse Ox 100% on R/A; Pain 0/10; tyshawn 19:35 Body Mass Index 32.22 (74.84 kg, 152.40 cm) ll3 ED Course: 19:02 Patient arrived in ED. mr 19:38 Triage completed. ll3 19:38 Arm band placed on right wrist. ll3 20:18 Sung Vizcarra PA is PHCP. cp 20:18 Santiago Loza MD is Attending Physician. cp 20:26 Sonal Clark, FAVIOLA is Primary Nurse. tyshawn 21:06 CBC with Diff Sent. tyshawn 21:06 CMP Sent. tyshawn 21:06 Lipase Sent. tyshawn 21:12 CT Stone Protocol In Process Unspecified. EDMS 21:32 Urine Culture Sent. tyshawn 21:39 No provider procedures requiring assistance completed. tyshawn 22:25 US Transvaginal Study (Probe) In Process Unspecified. EDMS 23:32 Patient has correct armband on for positive identification. Bed in low position. Call tyshawn light in reach. Side rails up X 1. 23:34 intact, bleeding controlled, No redness/swelling at site. Pressure dressing applied. tyshawn Administered Medications: 21:00 Drug: Zofran (Ondansetron) 4 mg Route: IVP; Site: right antecubital; tyshawn 23:31 Follow up: Response: No adverse reaction tyshawn 21:00 Drug: morphine 4 mg Route: IVP; Site: right antecubital; tyshawn 23:30 Follow up: Response: No adverse reaction tyshawn 21:33 Drug: NS 0.9% 1000 ml Route: IV; Rate: 1 bolus; Site: right antecubital; tyshawn 23:31 Follow up: IV Status: Completed infusion; IV Intake: 1000ml tyshawn 22:21 Drug: Rocephin - (cefTRIAXone) 1 grams Route: IVPB; Infused Over: 30 mins; Site: right tyshawn antecubital; 23:30 Follow up: IV Status: Completed infusion; IV Intake: 100ml tyshawn Intake: 23:30 IV: 100ml; Total: 100ml. tyshawn 23:31 IV: 1000ml; Total: 1100ml. tyshawn Outcome: 23:02 Discharge ordered by . cp 23:32 Condition: stable tyshawn 23:34 Discharged to home ambulatory. tyshawn 23:34 Discharge instructions given to patient, Instructed on discharge instructions, follow up and referral plans. medication usage, Demonstrated understanding of instructions, follow-up care, medications, Prescriptions given X 1. 23:35 Patient left the ED. tyshawn Signatures: Dispatcher [employer] Naida Chen Corey, Mohamud Yuan cp, RN RN ll3 Sonal Clark RN RN tyshawn
--- NOTE | 2021-09-11 23:03 | EDPHYS ---
Physician Documentation [facility] Name: Yolette Ku Age: 26 yrs Sex: Female : 1995 Arrival Date: 09/11/2021 Time: 19:02 Bed 17 Private MD: ED Physician Santiago Loza HPI: 09/11 20:45 This 26 yrs old Female presents to ER via Ambulatory with complaints of Vaginal cp Bleeding, Back Pain, Leg Pain. 20:45 The patient complains of pain in the left flank. cp 20:45 The pain radiates to the abdomen and left leg. Onset: The symptoms/episode cp began/occurred 4 day(s) ago. 20:45 Associated signs and symptoms: Pertinent positives: hematuria, nausea, pain radiating cp to left lower extremity, vaginal bleeding. 20:45 Severity of pain: in the emergency department the pain is actually worse moderately. 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 - Social history:: Smoking status: Patient reports the use of cigarette tobacco products, Reported history of juuling and/or vaping. ROS: 20:50 Constitutional: Negative for body aches, chills, fever, poor PO intake. cp 20:50 Eyes: Negative for injury, pain, redness, and discharge. cp 20:50 ENT: Negative for drainage from ear(s), ear pain, sore throat, difficulty swallowing, difficulty handling secretions. 20:50 Cardiovascular: Negative for chest pain, palpitations. 20:50 Respiratory: Negative for cough, shortness of breath, wheezing. 20:50 Abdomen/GI: Positive for abdominal pain, nausea, Negative for vomiting, diarrhea, constipation. 20:50 Back: Positive for pain at rest. 20:50 : Positive for hematuria, vaginal bleeding. 20:50 MS/extremity: Positive for of the left leg, radiating pain. 20:50 Neuro: Negative for altered mental status, headache, weakness. 20:50 All other systems are negative. Exam: 20:55 Constitutional: The patient appears in no acute distress, alert, awake, non-toxic, well cp developed, well nourished, uncomfortable. 20:55 Head/Face: Normocephalic, atraumatic. cp 20:55 Eyes: Periorbital structures: appear normal, Conjunctiva: normal, no exudate, no injection, Sclera: no appreciated abnormality, Lids and lashes: appear normal, bilaterally. 20:55 ENT: External ear(s): are unremarkable, Nose: is normal, Mouth: Lips: moist, Oral mucosa: moist, Posterior pharynx: Airway: no evidence of obstruction, patent. 20:55 Neck: ROM/movement: is normal, is supple, without pain, no range of motions limitations. 20:55 Chest/axilla: Inspection: normal, Palpation: is normal, no crepitus, no tenderness. 20:55 Cardiovascular: Rate: normal, Rhythm: regular. 20:55 Respiratory: the patient does not display signs of respiratory distress, Respirations: normal, no use of accessory muscles, no retractions, labored breathing, is not present, Breath sounds: are clear throughout, no decreased breath sounds, no stridor, no wheezing. 20:55 Abdomen/GI: Inspection: abdomen appears normal, Bowel sounds: active, all quadrants, Palpation: soft, in all quadrants, severe abdominal tenderness, in the left lower quadrant, rebound tenderness, is not appreciated, voluntary guarding, is elicited in the left lower quadrant. 20:55 Back: pain, that is moderate, of the left low back and left mid back, ROM is painful, with all movement. 20:55 Skin: cellulitis, is not appreciated, no rash present. 20:55 Neuro: Orientation: to person, place \T\ time. Mentation: is normal, Motor: moves all fours, strength is normal, Sensation: no obvious gross deficits. Vital Signs: 19:35 BP 131 / 50; Pulse 76; Resp 16; Temp 97.8(TE); Pulse Ox 99% on R/A; Weight 74.84 kg ll3 (R); Height 5 ft. 0 in. (152.40 cm) (R); Pain 10/10; 23:30 BP 121 / 65; Pulse 72; Resp 18; Temp 98.5; Pulse Ox 100% on R/A; Pain 0/10; tyshawn 19:35 Body Mass Index 32.22 (74.84 kg, 152.40 cm) ll3 MDM: 20:29 Patient medically screened. cp 21:00 Differential diagnosis: nephrolithiasis, pyelonephritis, UTI, diverticulitis, ovarian cp cyst, ovarian torsion. 23:02 Data reviewed: vital signs, nurses notes, lab test result(s), radiologic studies, CT cp scan, ultrasound. 23:02 Counseling: I had a detailed discussion with the patient and/or guardian regarding: the cp historical points, exam findings, and any diagnostic results supporting the discharge/admit diagnosis, lab results, radiology results, to return to the emergency department if symptoms worsen or persist or if there are any questions or concerns that arise at home. Response to treatment: the patient's symptoms have markedly improved after treatment, and as a result, I will discharge patient. Special discussion: Based on the patient's Hx, exam, and Dx evaluation, there is no indication for emergent surgery or inpatient Tx. It is understood by the patient/guardian that if the Sx's persist or worsen they need to return immediately for re-evaluation. 09/11 20:38 Order name: CBC with Diff; Complete Time: 22:26 cp 09/11 22:26 Interpretation: Normal except: WBC 11.3. cp 09/11 20:38 Order name: CMP; Complete Time: 22:26 cp 09/11 22:26 Interpretation: Normal except: CL 111; GLUC 111; AST 9. cp 09/11 20:38 Order name: Lipase; Complete Time: 22:26 cp 09/11 20:38 Order name: Urine Microscopic Only; Complete Time: 21:32 cp 09/11 21:32 Interpretation: Normal except: UWBC 20-50; URBC 20-50; SQEPI 5-10. cp 09/11 20:46 Order name: Urine Dipstick-Ancillary; Complete Time: 21:32 EDMS 09/11 21:32 Interpretation: Normal except: UBLD 3+; UPROT 2+; UESTR 1+. cp 09/11 20:46 Order name: Urine --Ancillary (enter results); Complete Time: 21:32 bb 09/11 20:38 Order name: CT Stone Protocol; Complete Time: 21:32 cp 09/11 20:38 Order name: IV Saline Lock; Complete Time: 21:06 cp 09/11 21:05 Order name: Urine Culture EDMS 09/11 21:40 Order name: US Transvaginal Study (Probe) cp 09/11 20:38 Order name: Labs collected and sent; Complete Time: 21:06 cp 09/11 20:38 Order name: Urine Dipstick-Ancillary (obtain specimen); Complete Time: 20:46 cp 09/11 20:38 Order name: Urine Test (obtain specimen); Complete Time: 20:46 cp Administered Medications: 21:00 Drug: Zofran (Ondansetron) 4 mg Route: IVP; Site: right antecubital; tyshawn 23:31 Follow up: Response: No adverse reaction tyshawn 21:00 Drug: morphine 4 mg Route: IVP; Site: right antecubital; tyshawn 23:30 Follow up: Response: No adverse reaction tyshawn 21:33 Drug: NS 0.9% 1000 ml Route: IV; Rate: 1 bolus; Site: right antecubital; tyshawn 23:31 Follow up: IV Status: Completed infusion; IV Intake: 1000ml tyshawn 22:21 Drug: Rocephin - (cefTRIAXone) 1 grams Route: IVPB; Infused Over: 30 mins; Site: right tyshawn antecubital; 23:30 Follow up: IV Status: Completed infusion; IV Intake: 100ml tyshawn Disposition: 09/12 01:22 Co-signature as Attending Physician, Santiago Loza MD. [email or web address] Disposition Summary: 09/11/21 23:02 Discharge Ordered Location: Home cp Problem: new cp Symptoms: have improved cp Condition: Stable cp Diagnosis - UTI/ Urinary tract infection, site not specified cp - Other and unspecified ovarian cysts - right cp Followup: cp - With: Private Physician - When: 2 - 3 days - Reason: Recheck today's complaints Discharge Instructions: - Discharge Summary Sheet cp - Ovarian Cyst cp - Urinary Tract Infection, Adult cp Forms: - Medication Reconciliation Form cp - Thank You Letter cp - Antibiotic Education cp - Prescription Opioid Use cp Prescriptions: - Bactrim DS 800-160 mg Oral Tablet - take 1 tablet by ORAL route every 12 hours for 7 days; 14 tablet; Refills: 0, cp Product Selection Permitted - Diclofenac Sodium 75 mg Oral tablet,delayed release (DR/EC) - take 1 tablet by ORAL route 2 times per day; 20 tablet; Refills: 0, Product cp Selection Permitted Signatures: Dispatcher [employer] EDSung Morrow PA PA cp Holmes, Maurice, MD MD mh7 Mohamud Boo RN RN ll3 Sonal Clark RN RN tyshawn
[2021-09-12 08:55] VITALS: BP 121/65; TEMP 98.5; O2SAT 100
--- NOTE | 2021-09-12 15:32 | RAD REPORT ---
EXAM DESCRIPTION: US - Transvaginal Study Probe - 09/11/2021 11:06 pm CLINICAL HISTORY: 26 years, Female, left flank pain COMPARISON: None. TECHNIQUE: Utilizing a transvaginal array transducer, real-time ultrasound evaluation of the female pelvis was performed. Color Doppler imaging was used to assess vascular flow. FINDINGS: The uterus measures 8.9 x 4.4 x 4.8 cm. The endometrial stripe demonstrate to be normal and measure 10.2 mm, no focal masses were identified within the uterus. The right ovary measured 3.1 x 1.9 x 3.5 cm. There is normal vascular flow and spectral waveforms wit h no evidence for torsion. There is a small right paraovarian cystic structure measuring 1.7 x 1.4 x 1.5 cm. The left ovary was not visualized. No free fluid was identified in the posterior cul-de-sac, no adnexal masses seen. IMPRESSION: 1.7 cm right paraovarian simple adnexal cyst. No follow-up imaging is required. Left ovary was not visualized. Otherwise unremarkable pelvic ultrasound. Electronically signed by: Den Erazo MD 09/11/2021 10:51 PM CDT Due to temporary technical issues with the PACS/Fluency reporting system, reports are being signed by the in house radiologists without review as a courtesy to insure prompt reporting. The interpreting radiologist is fully responsible for the content of the report.
== END 2021-09-11 23:35 | disposition home or self-care (01) ==
LOC: ER 18:59
DX: N39.0 Urinary tract infection, site not specified (principal); N83.291 Other ovarian cyst, right side; Z72.0 Tobacco use
CPT/HCPCS: 36415; 74176; 76377; 76830; 80053; 81003; 81015; 81025; 83690; 85025; 87086; 87088; 96361; 96365; 96375; 99284; J2405; J7030

== ENCOUNTER 2022-05-16 18:08 | Emergency (ER) | payer SELFPAY ==
--- NOTE | 2022-05-16 18:34 | ER ---
Nurse's Notes [facility] Name: Yolette Ku Age: 27 yrs Sex: Female : 1995 Arrival Date: 05/16/2022 Time: 18:10 Bed IW1 Private MD: Diagnosis: Tinnitus, left ear Presentation: 05/16 18:23 Chief complaint: Patient states: i have had ringing in my left ear x2 weeks, not so jh5 much pain but ringing... I've been on antibiotics x2 weeks and steriods, I just cant get in with an ENT right now. Coronavirus screen: Vaccine status: Patient reports receiving the 2nd dose of the covid vaccine. Ebola Screen: Patient negative for fever greater than or equal to 101.5 degrees Fahrenheit, and additional compatible Ebola Virus Disease symptoms Patient denies exposure to infectious person. Patient denies travel to an Ebola-affected area in the 21 days before illness onset. Initial Sepsis Screen: Does the patient meet any 2 criteria? No. Patient's initial sepsis screen is negative. Does the patient have a suspected source of infection? No. Patient's initial sepsis screen is negative. Risk Assessment: Do you want to hurt yourself or someone else? Patient reports no desire to harm self or others. 18:23 Method Of Arrival: Ambulatory [facility] 18:23 Acuity: JIM 4 5 18:25 Onset of symptoms was April 2022. [facility] Triage Assessment: 18:24 General: Appears in no apparent distress. uncomfortable, Behavior is calm, cooperative, 5 appropriate for age. Pain: Denies pain. SDE: 18:24 LMP N/A - Irregular menses [facility] Historical: - Allergies: 18:24 Dilaudid; 5 18:24 Vicodin; 5 - PMHx: 18:24 Migraine; 5 - PSHx: 18:24 Appendectomy; section; Cholecystectomy; ear tubes; 5 - Immunization history:: Adult Immunizations up to date. - Social history:: Smoking status: Patient reports the use of cigarette tobacco products, smokes one pack cigarettes per day. Vital Signs: 18:23 BP 134 / 61; Pulse 78; Resp 16; Temp 98.8; Pulse Ox 100% ; Weight 61.23 kg; Height 5 jh5 ft. 0 in. (152.40 cm); Pain 0/10; 18:23 Body Mass Index 26.37 (61.23 kg, 152.40 cm) 5 ED Course: 18:10 Patient arrived in ED. as 18:11 Cindy Arellano FNP-C [facility] kb 18:11 Sung Lguo MD is Attending Physician. kb 18:24 Triage completed. jh5 18:24 Arm band placed on right wrist. jh5 Administered Medications: No medications were administered Outcome: 18:33 Discharge ordered by . kb 19:17 Patient left the ED. 5 Signatures: Cindy Arellano FNP-C FNP-Mary Thomas as Ileana Can RN RN jh5 Corrections: (The following items were deleted from the chart) 18:26 18:23 Chief complaint: Patient states: i have had ringing in my left ear x2 weeks, not jh5 so much pain but ringing jh5
--- NOTE | 2022-05-16 18:34 | EDPHYS ---
Physician Documentation [facility] Name: Yolette Ku Age: 27 yrs Sex: Female : 1995 Arrival Date: 05/16/2022 Time: 18:10 Bed IW1 Private MD: ED Physician Sung Lugo HPI: 05/16 21:50 This 27 yrs old Female presents to ER via Ambulatory with complaints of Dizziness, Ear kb Problem. 21:50 The patient presents with hearing loss, tinnitus. The complaints affect the left ear. kb Onset: The symptoms/episode began/occurred 2 week(s) ago. Modifying factors: The symptoms are alleviated by nothing, the symptoms are aggravated by nothing. Associated signs and symptoms: Pertinent positives: tinnitus. Severity of symptoms: At their worst the symptoms were moderate in the emergency department the symptoms are unchanged. The patient has not experienced similar symptoms in the past. The patient has been recently seen by a physician:. Pt reports ringing in left ear for 2 weeks with decreased hearing. States she has taken cefdinir and steroids, but it hasn't gone away. Concerned she is losing her hearing. . 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 - Social history:: Smoking status: Patient reports the use of cigarette tobacco products, smokes one pack cigarettes per day. ROS: 21:50 Constitutional: Negative for fever, chills, and weight loss. kb 21:50 ENT: Positive for tinnitus. 21:50 All other systems are negative. Exam: 21:50 Constitutional: This is a well developed, well nourished patient who is awake, alert, kb and in no acute distress. Head/Face: Normocephalic, atraumatic. ENT: Moist Mucous membranes Cardiovascular: Regular rate and rhythm with a normal S1 and S2. No gallops, murmurs, or rubs. No pulse deficits. Respiratory: Respirations even and unlabored. No increased work of breathing. Talking in full sentences Abdomen/GI: Soft, non-tender. No distention Skin: Warm, dry with normal turgor. Normal color. MS/ Extremity: Pulses equal, no cyanosis. Neurovascular intact. Full, normal range of motion. Neuro: Awake and alert, GCS 15, oriented to person, place, time, and situation. Moves all extremities. Normal gait. Psych: Awake, alert, with orientation to person, place and time. Behavior, mood, and affect are within normal limits. Vital Signs: 18:23 BP 134 / 61; Pulse 78; Resp 16; Temp 98.8; Pulse Ox 100% ; Weight 61.23 kg; Height 5 [facility] ft. 0 in. (152.40 cm); Pain 0/10; 18:23 Body Mass Index 26.37 (61.23 kg, 152.40 cm) 5 MDM: 18:31 Patient medically screened. kb 21:50 Data reviewed: vital signs, nurses notes. Data interpreted: Pulse oximetry: on room air kb is 100 %. Interpretation: normal. Counseling: I had a detailed discussion with the patient and/or guardian regarding: the historical points, exam findings, and any diagnostic results supporting the discharge/admit diagnosis, the need for outpatient follow up, an ENT specialist, to return to the emergency department if symptoms worsen or persist or if there are any questions or concerns that arise at home. Administered Medications: No medications were administered Disposition Summary: 05/16/22 18:33 Discharge Ordered Location: Home kb Condition: Stable kb Diagnosis - Tinnitus, left ear kb Followup: kb - With: Emergency Department - When: As needed - Reason: Worsening of condition Followup: kb - With: Private Physician - When: 2 - 3 days - Reason: Recheck today's complaints, Continuance of care, Re-evaluation by your physician Discharge Instructions: - Discharge Summary Sheet kb - Tinnitus kb Forms: - Medication Reconciliation Form kb - Thank You Letter kb - Antibiotic Education kb - Prescription Opioid Use kb Signatures: Cindy Arellano FNP-C FNP-Ckb Rees, Jessica RN RN 5
[2022-05-16 19:45] VITALS: BP 134/61; TEMP 98.8; O2SAT 100
== END 2022-05-16 19:17 | disposition home or self-care (01) ==
LOC: ER 18:08
DX: H93.12 Tinnitus, left ear (principal); F17.210 Nicotine dependence, cigarettes, uncomplicated; Z88.5 Allergy status to narcotic agent

== ENCOUNTER 2022-12-19 19:28 | Emergency (ER) | payer OTHER, SELFPAY ==
--- OUTSIDE RECORDS SUMMARY | 2022-12-19 19:32 | XMS REPORT | Continuity of Care Document ---
:1995 Author Organization [facility] t Address [address] [place] [address] Care Team Providers Name Role Phone PCP, PATIENT DOES NOT HAVE A Primary Care Physician Unavaila ble MARCOS GALICIA Attending Clinician Unavailable Marcos Galicia MD Attending Clinician WALESKA HUYNH Attending Clinician Unavailable Waleska Hill Attending Clinician MARCOS GALICIA Admitting Clinician Unavailable WALESKA HUYNH Admitting Clinician Unavailable Problems This patient has no known problems. Allergies, Adverse Reactions, Alerts Allergy Allergy Status Severity Reaction(s) Onset Inactive Treating Comm ents Source Name Type Date Date Clinician Hydromor Propensi Active Itching 2020-06 Unive rs phone ty to 2-14 ity of adverse 00:00: [place] reaction 00 Medical Branch Hydrocod Propensi Active Itching 2020-06 Unive rs one ty to 2-14 ity of adverse 00:00: [place] reaction 00 Medical s Branch HYDROCOD DRUG Active ITCHING 2020-06 Univers ONE INGREDI 2-14 ity of 00:00: [place] 00 [facility] HYDROMOR DRUG Active ITCHING 2020-06 Univers PHONE INGREDI 2-14 ity of 00:00: [address] NO KNOWN Drug Active Univers ALLERGIE Class ity of S [facility] Social History Social Habit Start Date Stop Date Quantity Comments Source Exposure to 2022-04-24 2022-05-04 Not sure [facility] SARS-CoV-2 (event) 00:00:00 19:02:00 Medica l Branch Sex Assigned At [birth year] [facility] [place] 00:00:00 00:00:00 Medical Branch Smoking Status Start Date Stop Date Source Tobacco smoking consumption [facility] Medical unknown Branch Medications Ordered Filled Start Stop Current Ordering Indication Dosage Frequency Signature Comments Components Source Medication Medication Date Date Medication? Clinician (SIG) Name Name dexamethaso 2021-06 No 10mg 10 mg, Uni vers ne sod phos 07-06 Intramuscu i ty of PF 02:00: 01:54 lar, ONCE, [place] injection 00 :00 1 dose, On Medi mary 10 mg Fri Branch 05/04/22 at 1999, 1 mL benzonatate 2021-06 Yes [id number] 100mg Take 1 Univers 100 mg 07-05 capsule by ity of capsule 00:00: mouth 3 [place] 00 (three) Medical times Branch daily as needed for Cough. cefdinir 2021-06 No [id number] 300mg Take 1 U nivers 300 mg 07-05 capsule by ity of capsule 00:00: 05:59 mouth in [place] 00 :00 the Medical morning Branch and 1 capsule in the evening. Do all this for 10 days. predniSONE 2021-06 [id number] 20mg Take 1 Univers 20 mg 07-0507 tablet by ity of tablet 00:00: 05:59 mouth in [place] 00 :00 the Medical morning Branch and 1 tablet in the evening. Do all this for 4 days. ondansetron 2020-06 No 4mg 4 mg, [facility] ers (ZOFRAN-ODT 07-18 Oral, ity of ) 02:15: 02:02 ONCE, 1 [place] disintegrat 00 :00 dose, On Medi mary ing tablet Tue Branch 4 mg 05/16/21 at 2014, Routine acetaminoph 2020-06 No 1{tbl} 1 tablet, [facility] en-codeine 07-18 Oral, ity of (TYLENOL 02:00: 02:02 ONCE, 1 [place] #3) 300-30 00 :00 dose, On Medic al mg tablet 1 Tue Branch tablet 05/16/21 at 1999, LEILANI naproxen 2020-06- No 500mg 500 mg, Univ ers (NAPROSYN) 2-15 12-15 Oral, ity of tablet 500 02:00: 02:02 ONCE, 1 [place] as mg 00 :00 dose, On Medical Tue Branch 05/16/21 at 2000, Routine acetaminoph 2020-06 Yes [id number] 1{tbl} Take 1 Un aristides en-codeine 2-14 tablet by ity of 300-30 mg 00:00: mouth [place] tablet 00 every 4 Medical (four) Branch hours as needed for Pain (scale 4-6). Indication s: acute pain naproxen 2020-06 Yes [id number] 500mg Take 1 U nivers (NAPROSYN) 2-14 tablet by ity of 500 mg 00:00: mouth 2 [place] tablet 00 (two) Medical times Branch daily with meals. acetaminoph 2020-06 Yes [id number] 1{tbl} Take 1 Un aristides en-codeine 2-14 tablet by ity of 300-30 mg 00:00: mouth [place] tablet 00 every 4 Medical (four) Branch hours as needed for Pain (scale 4-6). Indication s: acute pain naproxen 2020-06 Yes [id number] 500mg Take 1 U nivers (NAPROSYN) 2-14 tablet by ity of 500 mg 00:00: mouth 2 [place] tablet 00 (two) Medical times Branch daily with meals. Vital Signs Vital Name Observation Time Observation Value Comments Source Systolic blood 2022-05-05 01:07:00 140 mm[Hg] [facility] sity [facility] Diastolic blood 2022-05-05 01:07:00 70 mm[Hg] [facility] Heart rate 2022-05-05 01:07:00 91 /min [facility] Body temperature 2022-05-05 01:07:00 37.17 Patti [facility] Respiratory rate 2022-05-05 01:07:00 20 /min [facility] Body height 2022-05-05 01:07:00 152.4 cm [facility] Body weight 2022-05-05 01:07:00 74.844 kg [facility] BMI 2022-05-05 01:07:00 32.22 kg/m2 Univers[facility] Oxygen saturation in 2022-05-05 01:07:00 100 /min University of Arterial blood by [facility] Pulse oximetry Branch Systolic blood 2021-05-17 00:35:00 121 mm[Hg] Univer sity of pressure [facility] Diastolic blood 2021-05-17 00:35:00 62 mm[Hg] Unive rsity of pressure [facility] Heart rate 2021-05-17 00:35:00 69 /min [facility] Body temperature 2021-05-17 00:35:00 36.78 Patti [facility] Res[facility] rate 2021-05-17 00:35:00 18 /min [facility] Body height 2021-05-17 00:35:00 152.4 cm [facility] Body weight 2021-05-17 00:35:00 75.297 kg [facility] BMI 2021-05-17 00:35:00 32.42 kg/m2 [facility] Oxygen saturation in 2021-05-17 00:35:00 100 /min University of Arterial blood by [facility] [place] [facility] Pulse oximetry Branch Procedures Procedure Date / Time Performed Performing Clinician Sour e RAPID STREP SCREEN 2022-05-05 01:22:00 Marcos Galicia [facility] FOR GROUP A [facility] Branch RAPID INFLUENZA A/B 2022-05-05 01:22:00 Marcos Galicia [facility] COVID-19 (ID NOW 2022-05-05 01:22:00 Marcos Galicia [facility] RAPID TESTING) Medical Branch CONSENT/REFUSAL FOR 2022-05-05 00:50:11 [facility] AND Name Medical Branch TREATMENT NOTICE OF PRIVACY 2022-05-05 00:49:48 Doctor Unassigned, No [facility] Name [facility] POCT TEST 2021-05-17 01:56:00 Waleska Huynh [facility] XR LUMBAR SPINE 2 VW 2021-05-17 01:22:16 Waleska Huynh [facility] NOTICE OF PRIVACY 2021-05-17 00:03:46 Doctor Unassigned, No Univ ersity [facility] PRACTICES Name [facility] Branch CONSENT/REFUSAL FOR 2021-05-16 23:58:30 Doctor Unassigned, No [facility] DIAGNOSIS AND Name [facility] TREATMENT Encounters Start End Encounter Admission Attending Care Care Encounter Source Date/Time Date/Time Type Type Clinicians Facility Department ID 2022-05-04 2022-05-04 Emergency X EFREN, [facility] ERT [id number] Univers 19:09:00 20:34:00 MARCOS lees [facility] 2022-05-04 2022-05-04 Emergency Vasnina, [facility] [id number] Univers 19:09:00 20:34:00 Marcos BACA [id number] i ty of [place] [id number] [facility] [id number] [address] 2021-05-16 2021-05-16 [facility] [id number] Univers 18:37:00 21:15:00 WALESKA lees [facility] 2021-05-16 2021-05-16 Emergency [facility] [id number] Univers 18:37:00 21:15:00 Waleska BACA [id number] i ty of [place] [id number] [facility] [id number] [address] Results Test Description Test Time Test Comments Results Result Comments Source POCT TEST 2021-05-17 01:56:00 Test Item Value Reference Range Interpretation Comme nts POCT PREG (test code = 1605) negative On board controls acceptable with C Line (test code = 3574) present POCT PREG LOT # (test code = 3575) [id number] POCT PREG TEST DATE (test code = 3576) 07/03/2022 Lab Interpretation (test code = 97389-0) Normal [facility]
[2022-12-19] MEDS ORDERED: LORAZEPAM 1 MG TABLET ONE (21:09)
[2022-12-19] MEDS ORDERED: LIDOCAINE 1% W/EPI 1:100,000 50 ML MDV ONE (21:10)
--- NOTE | 2022-12-19 22:59 | ER ---
Nurse's Notes [facility] Name: Yolette Ku Age: 27 yrs Sex: Female : 1995 Arrival Date: 12/19/2022 Time: 19:28 Bed 11 Private MD: Diagnosis: Local infection of the skin and subcutaneous tissue, unspecified-right thigh Presentation: 12/19 20:05 Chief complaint: Patient states: boil to right upper thigh X1 year. Pt states that on cm10 Saturday it started to become more tender and painful. Coronavirus screen: Vaccine status: Patient reports receiving the 2nd dose of the covid vaccine. Ebola Screen: Patient denies travel to an Ebola-affected area in the 21 days before illness onset. No symptoms or risks identified at this time. Initial Sepsis Screen: Does the patient meet any 2 criteria? No. Patient's initial sepsis screen is negative. Does the patient have a suspected source of infection? No. Patient's initial sepsis screen is negative. Risk Assessment: Do you want to hurt yourself or someone else? Patient reports no desire to harm self or others. Onset of symptoms was December 17, 2022. 20:05 Method Of Arrival: Ambulatory cm10 20:05 Acuity: JIM 4 cm10 Triage Assessment: 20:07 General: Appears in no apparent distress. comfortable, Behavior is calm, cooperative. cm10 Pain: Complains of pain in right upper thigh Pain radiates to right leg Pain currently is 6 out of 10 on a pain scale. Quality of pain is described as burning, aching, crampy, Pain began years ago. Aggravated by increased activity. 20:07 Neuro: No deficits noted. Level of Consciousness is awake, alert, obeys commands, cm10 Oriented to person, place, time, situation. Cardiovascular: No deficits noted. Capillary refill < 3 seconds. Respiratory: No deficits noted. Airway is patent Respiratory effort is even, unlabored, Respiratory pattern is regular, symmetrical. Derm: Reports abscess to upper thigh. 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 - Social history:: Smoking status: Patient denies any tobacco usage or history of. Screenin:11 [facility] ED Fall Risk Assessment (Adult) History of falling in the last 3 months, cm10 including since admission No falls in past 3 months (0 pts) Confusion or Disorientation No (0 pts) Intoxicated or Sedated No (0 pts) Impaired Gait No (0 pts) Mobility Assist Device Used No (0 pt) Altered Elimination No (0 pt) Score/Fall Risk Level 0 - 2 = Low Risk Oriented to surroundings, Maintained a safe environment, Hourly rounding (assess needs \T\ fall precautionary measures) done. Abuse screen: Denies threats or abuse. Denies injuries from another. Nutritional screening: No deficits noted. Tuberculosis screening: No symptoms or risk factors identified. Assessment: 20:09 Reassessment: See triage assessment. cm10 Vital Signs: 20:05 BP 108 / 79; Pulse 74; Resp 16; Temp 98.3; Pulse Ox 100% ; Weight 72.57 kg; Height 5 cm10 ft. 0 in. ; Pain 6/10; 23:05 BP 123 / 99; Pulse 83; Resp 19; Pulse Ox 99% on R/A; kd3 20:05 Body Mass Index 31.25 (72.57 kg, 152.4 cm) cm10 20:05 Pain Scale: Adult cm10 ED Course: 19:33 Patient arrived in ED. kj1 19:42 Sung Vizcarra PA is PHCP. cp 19:42 Burt Hines MD is Attending Physician. cp 19:55 Yolette Martinez, FAVIOLA is Primary Nurse. cm10 20:06 Triage completed. cm10 20:08 Arm band placed on. cm10 20:09 Patient has correct armband on for positive identification. Bed in low position. Call cm10 light in reach. Side rails up X 1. Pulse ox on. NIBP on. Door closed. Warm blanket given. 23:05 Provided Education on: . kd3 23:05 Assist provider with I \T\ D:. Patient did not have IV access during this emergency room kd3 visit. Administered Medications: 21:06 Drug: LORazepam PO 1 mg Route: PO; cm10 23:06 Follow up: Response: No adverse reaction kd3 23:04 Drug: Trimethoprim-Sulfamethoxazole PO (160 mg-800 mg (DS) 1 tablet Route: PO; kd3 23:06 Follow up: Response: No adverse reaction kd3 23:06 Drug: Lidocaine-Epinephrine Infiltration -1%: (1:100,000) 10 ml Volume: 20 ml; Route: kd3 Infiltration; Medication: 20:11 VIS not applicable for this client. cm10 Outcome: 22:59 Discharge ordered by . juan 23:05 Discharged to home ambulatory. kd3 23:05 Condition: stable 23:05 Discharge instructions given to patient, family, Instructed on discharge instructions, follow up and referral plans. medication usage, Demonstrated understanding of instructions, follow-up care, medications, Prescriptions given X 2. 23:06 Patient left the ED. kd3 Signatures: Sung Vizcarra PA PA cp Jackson, Kandis kj1 Julianna Chatterjee, RN RN kd3 Yolette Martinez RN RN cm10
--- NOTE | 2022-12-19 22:59 | EDPHYS ---
Physician Documentation [facility] Name: Yolette Ku Age: 27 yrs Sex: Female : 1995 Arrival Date: 12/19/2022 Time: 19:28 Bed 11 Private MD: ED Physician Burt Hines HPI: 12/19 21:00 This 27 yrs old Female presents to ER via Ambulatory with complaints of BOIL THIGH AREA.cp 21:00 Patient is a 27-year-old female who presents to the emergency department with cp complaints of a area of swelling to her right thigh area that she has noticed for about the past year. Patient reports since Saturday she is notices become more painful, swollen and red. Patient denies any injury to the area. Patient denies fever chills sweats and/or any drainage from.. 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 - Social history:: Smoking status: Patient denies any tobacco usage or history of. ROS: 21:05 Skin: Positive for erythema, swelling, of the right upper thigh. cp 21:05 Constitutional: Negative for body aches, chills, fever. cp 21:05 Respiratory: Negative for cough, shortness of breath, wheezing. 21:05 Abdomen/GI: Negative for abdominal pain, nausea, vomiting, and diarrhea. 21:05 All other systems are negative. Exam: 21:10 Constitutional: The patient appears in no acute distress, alert, awake, non-toxic, well cp developed, well nourished, anxious. 21:10 Head/Face: Normocephalic, atraumatic. cp 21:10 Cardiovascular: Rate: normal. 21:10 Respiratory: the patient does not display signs of respiratory distress, Respirations: normal, no use of accessory muscles, no retractions, labored breathing, is not present. 21:10 Skin: Examination of right anterior upper thigh shows small area approximately the size of a silver dollar that is tender, mild swelling and mild erythema noted. No drainage expressed. Vital Signs: 20:05 BP 108 / 79; Pulse 74; Resp 16; Temp 98.3; Pulse Ox 100% ; Weight 72.57 kg; Height 5 cm10 ft. 0 in. ; Pain 6/10; 23:05 BP 123 / 99; Pulse 83; Resp 19; Pulse Ox 99% on R/A; kd3 20:05 Body Mass Index 31.25 (72.57 kg, 152.4 cm) cm10 20:05 Pain Scale: Adult cm10 MDM: 19:58 Patient medically screened. cp 22:58 Data reviewed: vital signs, nurses notes, and as a result, I will discharge patient. 22:58 I considered the following discharge prescriptions or medication management in the cp emergency department Medications were administered in the Emergency Department. See MAR. Counseling: I had a detailed discussion with the patient and/or guardian regarding: the historical points, exam findings, and any diagnostic results supporting the discharge/admit diagnosis, to return to the emergency department if symptoms worsen or persist or if there are any questions or concerns that arise at home. ED course: Area was anesthetized with approximately 5 cc of 1% lidocaine with epi. 18-gauge needle was inserted and area and no purulent drainage expressed. Area was cleaned and dressed with 4 x 4 and will discharge with an oral antibiotic. 12/19 20:52 Order name: I\T\D Setup; Complete Time: 23:04 cp Administered Medications: 21:06 Drug: LORazepam PO 1 mg Route: PO; cm10 23:06 Follow up: Response: No adverse reaction kd3 23:04 Drug: Trimethoprim-Sulfamethoxazole PO (160 mg-800 mg (DS) 1 tablet Route: PO; kd3 23:06 Follow up: Response: No adverse reaction kd3 23:06 Drug: Lidocaine-Epinephrine Infiltration -1%: (1:100,000) 10 ml Volume: 20 ml; Route: kd3 Infiltration; Disposition Summary: 12/19/22 22:59 Discharge Ordered Location: Home cp Problem: new cp Symptoms: have improved cp Condition: Stable cp Diagnosis - Local infection of the skin and subcutaneous tissue, unspecified - right thigh cp Followup: cp - With: Private Physician - When: 2 - 3 days - Reason: Worsening of condition Discharge Instructions: - Discharge Summary Sheet cp - Cellulitis, Adult cp - Form - Excuse from Work, School, or Physical Activity cp Forms: - Medication Reconciliation Form cp - Thank You Letter cp - Antibiotic Education cp - Prescription Opioid Use cp - Patient Portal Instructions cp Prescriptions: - Ibuprofen 800 mg Oral Tablet - take 1 tablet by ORAL route every 8 hours As needed take with food; 30 tablet; cp Refills: 0, Product Selection Permitted - Bactrim DS 800-160 mg Oral Tablet - take 1 tablet by ORAL route every 12 hours for 7 days; 14 tablet; Refills: 0, cp Product Selection Permitted Signatures: Sung Vizcarra PA PA cp Doucette, Kyli, RN RN kd3 Yolette Martinez RN RN cm10
[2022-12-19] MEDS ORDERED: SMZ./TMP. 800/160 MG TABLET ONE (23:10)
[2022-12-19 23:48] VITALS: TEMP 98.3
[2022-12-19 23:49] VITALS: BP 123/99; O2SAT 99
== END 2022-12-19 23:06 | disposition home or self-care (01) ==
LOC: ER 19:28
PROC: 0H9HXZZ Drainage of Right Upper Leg Skin, External Approach (ICD-10-PCS; principal; 2022-12-19)
DX: L02.425 Furuncle of right lower limb (principal); L08.9 Local infection of the skin and subcutaneous tissue, unspecified; Z88.5 Allergy status to narcotic agent

== ENCOUNTER 2023-01-15 13:11 | Emergency (ER) | payer OTHER ==
--- OUTSIDE RECORDS SUMMARY | 2023-01-15 13:13 | XMS REPORT | Continuity of Care Document ---
:1995 Author Organization [facility] t Address [address] [facility] [place] [address] Care Team Providers Name Role Phone PCP, PATIENT DOES NOT HAVE A Primary Care Physician Unavaila ble COLBY MONTES Attending Clinician Unavailable ROXIE COOPER Attending Clinician Unavailable Roxie Cooper MD Attending Clinician MARCOS GALICIA Attending Clinician Unavailable Marcos Galicia MD Attending Clinician JEREMIAH HUYNH Attending Clinician Unavailable Jeremiah Hill Attending Clinician COLBY MONTES Admitting Clinician Unavailable MARCOS GALICIA Admitting Clinician Unavailable JEREMIAH HUYNH Admitting Clinician Unavailable Problems This patient [...] Univers ONE INGREDI 2-14 ity of 00:00: 00 Medical Branch HYDROMOR DRUG Active ITCHING 2020-06 Univers PHONE INGREDI 2-14 ity of 00:00: [place] 00 Medical Branch NO KNOWN Drug Active Univers ALLERGIE Class ity of [facility] Social History Social Habit Start Date Stop Date Quantity Comments Source Gender identity Universit y [facility] Sexual orientation Univer [facility] Exposure to 2022-04-24 2022-05-04 Not sure [facility] SARS-CoV-2 (event) 00:00:00 19:02:00 Medica l Branch Sex Assigned At [birth year] [facility] 00:00:00 00:00:00 Medical Branch Smoking Status Start Date Stop Date Source Tobacco smoking consumption [facility] unknown Branch Medications Ordered Filled Start Stop Current Ordering Indication Dosage Frequency Signature Comments Components Source Medication Medication Date Date Medication? Clinician (SIG) Name Name ketorolac 2022- No 30mg 30 mg, Unive rs (TORADOL) 01-11 Intramuscu ity of injection 03:15: 02:44 lar, ONCE, [place] 30 mg 00 :00 1 dose, On Medical [facility] Branch 01/10/23 at 2215, Routine methylPREDN Yes [id number] Take by Univers ISolone 8-10 mouth ity of (MEDROL, 00:00: SEE-INSTRU Omar as LICHA,) 4 mg 00 CTIONS. Medica l tablets follow Branch package directions cyclobenzap Yes [id number] 10mg Take 1 Univers rine 10 mg 8-10 tablet by ity of tablet 00:00: mouth [place] 00 every 8 Medical (eight) Branch hours as needed for Muscle Spasms. ketorolac 2022- No 30mg 30 mg, Unive rs (TORADOL) 12-21 Intramuscu ity of injection 01:15: 00:13 lar, ONCE, [place] 30 mg 00 :00 1 dose, On Medical [place] Branch 12/20/22 at 2015, Routine acetaminoph 2022-0 Yes [id number] 1{tbl} Take 1-2 Univers en-codeine 7-20 tablets by ity of 300-30 mg 00:00: mouth [place] tablet 00 every 6 Medical (six) Branch hours as needed for Pain (scale 4-6). Indication s: acute pain acetaminoph 0 Yes [id number] 1{tbl} Take 1-2 Univers en-codeine 7-20 tablets by ity of 300-30 mg 00:00: mouth [place] tablet 00 every 6 Medical (six) Branch hours as needed for Pain (scale 4-6). Indication s: acute pain dexamethaso 2021-06 No 10mg 10 mg, Uni vers ne sod phos 07-06 12-03 Intramuscu i ty of PF 02:00: 01:54 lar, ONCE, [place] injection 00 :00 1 dose, On Medi mary 10 mg Fri Branch 05/04/22 at 2000, 1 mL benzonatate 2021-06 Yes [id number] 100mg Take 1 Univers 100 mg 2-02 capsule by ity of capsule 00:00: mouth 3 [place] 00 (three) Medical times Branch daily as needed for Cough. benzonatate 2021-06 Yes [id number] 100mg Take 1 Univers 100 mg 2-02 capsule by ity of capsule 00:00: mouth 3 [place] 00 (three) Medical times Branch daily as needed for Cough. benzonatate 2021-06 Yes [id number] 100mg Take 1 Univers 100 mg 2-02 capsule by ity of capsule 00:00: mouth 3 [place] 00 (three) Medical times Branch daily as needed for Cough. cefdinir 2021-06 No [id number] 300mg Take 1 U nivers 300 mg 07-05- capsule by ity of capsule 00:00: 05:59 mouth in [place] 00 :00 the Medical morning Branch and 1 capsule in the evening. Do all this for 10 days. predniSONE 2021-06 No [id number] 20mg Take 1 Univers 20 mg -07 15- tablet by ity of tablet 00:00: 05:59 mouth in [place] 00 :00 the Medical morning Branch and 1 tablet in the evening. Do all this for 4 days. ondansetron 2020-06 No 4mg 4 mg, Univ ers (ZOFRAN-ODT 2-15 12-15 Oral, ity of ) 02:15: 02:02 ONCE, 1 [place] disintegrat 00 :00 dose, On Medi mary ing tablet Tue Branch 4 mg 05/16/21 at 2015, Routine acetaminoph 2020-06- No 1{tbl} 1 tablet, Univers en-codeine 2-15 12-15 Oral, ity of (TYLENOL 02:00: 02:02 ONCE, 1 [place] #3) 300-30 00 :00 dose, On Medic al mg tablet 1 Tue Branch tablet 05/16/21 at 1999, LEILANI naproxen 2020-06 No 500mg 500 mg, Univ ers (NAPROSYN) 2-15 -15 Oral, ity of tablet 500 02:00: 02:02 ONCE, 1 [place] as mg 00 :00 dose, On Medical Tue Branch 05/16/21 at 1999, Routine naproxen 2020-06 Yes [id number] 500mg Take 1 U nivers (NAPROSYN) 2-14 [...] Indication s: acute pain naproxen 2020-06 Yes [id number] 500mg Take 1 U nivers (NAPROSYN) 2-14 [...] Indication s: acute pain naproxen 2020-06 Yes [id number] 500mg Take 1 U nivers (NAPROSYN) 2-14 tablet by ity of 500 mg 00:00: mouth 2 [place] tablet 00 (two) Medical times Branch daily with meals. naproxen 2020-06 Yes [id number] 500mg Take 1 U nivers (NAPROSYN) 2-14 tablet by ity of 500 mg 00:00: mouth 2 [place] tablet 00 (two) Medical times Branch daily with meals. acetaminoph 2020-06 No [id number] 1{tbl} Take 1 U nivers en-codeine 2-14 07-20 tablet by ity of 300-30 mg 00:00: 00:00 mouth [place] tablet 00 :00 every 4 Medical (four) Branch hours as needed for Pain (scale 4-6). Indication s: acute pain Vital Signs Vital Name Observation Time Observation Value Comments Source Heart rate 2023-01-11 04:00:00 78 /min Universi ty of [facility] Respiratory rate 2023-01-11 04:00:00 16 /min Univ ersity of [facility] Oxygen saturation in 2023-01-11 04:00:00 98 /min University of Arterial blood by [facility] Pulse oximetry Branch Systolic blood 2023-01-11 01:56:00 120 mm[Hg] Univer sity of pressure [facility] Diastolic blood 2023-01-11 01:56:00 66 mm[Hg] Unive rsity of [facility] [place] Body temperature 2023-01-11 01:56:00 36.89 Patti Univ ersity of [facility] Body height 2023-01-11 01:56:00 152.4 cm Universi ty of [place] Medical Branch Body weight 2023-01-11 01:56:00 74.844 kg Universi ty of [place] Medical Branch BMI 2023-01-11 01:56:00 32.22 kg/m2 Universi ty of [facility] Oxygen saturation in 2022-12-21 00:09:53 98 /min University of Arterial blood by [facility] Pulse oximetry Branch Systolic blood 2022-12-20 23:36:00 124 mm[Hg] Univer sity of [facility] [place] Diastolic blood 2022-12-20 23:36:00 56 mm[Hg] Unive rsity of [facility] [place] Heart rate 2022-12-20 23:36:00 87 /min Universi ty of [facility] Body temperature 2022-12-20 23:36:00 37.39 Patti Univ ersity of [facility] Branch Respiratory rate 2022-12-20 23:36:00 16 /min Univ ersity of [facility] Body height 2022-12-20 23:36:00 152.4 cm Universi ty of [place] Medical Branch Body weight 2022-12-20 23:36:00 74.844 kg Universi ty of [place] Medical Branch BMI 2022-12-20 23:36:00 32.22 kg/m2 Universi ty of [place] [facility] Body height 2022-05-05 01:07:00 152.4 cm Universi ty of [place] [facility] Body weight 2022-05-05 01:07:00 74.844 kg Universi ty of [place] [facility] Branch BMI 2022-05-05 01:07:00 32.22 kg/m2 Universi ty of [place] [facility] Branch Oxygen saturation in 2022-05-05 01:07:00 100 /min University of Arterial blood by [email or web address] [facility] Pulse oximetry Branch Systolic blood 2022-05-05 01:07:00 140 mm[Hg] Univer sity of pressure [place] Medical Omar Diastolic blood 2022-05-05 01:07:00 70 mm[Hg] Unive rsity of pressure [facility] Heart rate 2022-05-05 01:07:00 91 /min Universi ty of [place] Medical Omar Body temperature 2022-05-05 01:07:00 37.17 Patti Univ ersity of [facility] Respiratory rate 2022-05-05 01:07:00 20 /min Univ ersity of [place] Medical Branch Systolic blood 2021-05-17 00:35:00 121 mm[Hg] Univer sity of pressure [place] Medical Branch Diastolic blood 2021-05-17 00:35:00 62 mm[Hg] Unive rsity of pressure [place] Medical Omar Heart rate 2021-05-17 00:35:00 69 /min Universi ty of [place] Medical Omar Body temperature 2021-05-17 00:35:00 36.78 Patti Univ ersity of [place] Medical Omar Respiratory rate 2021-05-17 00:35:00 18 /min Univ ersity of [place] Medical Omar Body height 2021-05-17 00:35:00 152.4 cm Universi ty of [place] Medical Branch Body weight 2021-05-17 00:35:00 75.297 kg Universi ty of [place] Medical Branch BMI 2021-05-17 00:35:00 32.42 kg/m2 Universi ty of [place] Medical Branch Oxygen saturation in 2021-05-17 00:35:00 100 /min University of Arterial blood by [place] [email or web address] mary Pulse oximetry Branch Procedures Procedure Date / Time Performed Performing Clinician Former[facility] e ASSIGNMENT OF BENEFITS 2023-01-11 02:55:45 Doctor Unassigned, No [facility] URINALYSIS 2023-01-11 02:43:00 [facility] PO[facility] TEST 2023-01-11 02:43:00 Colby Montes [facility] [place] Medical Branch NOTICE OF PRIVACY 2023-01-11 01:44:59 Doctor Unassigned, No Univ ersity of [facility] Name Medical Branch CONSENT/REFUSAL FOR 2023-01-11 01:43:39 Doctor Unassigned, No Un iversity of [place] DIAGNOSIS AND Name Medical Branch TREATMENT ASSIGNMENT OF BENEFITS 2022-12-21 00:28:40 Doctor Unassigned, No [facility] Medical Branch CONSENT/REFUSAL FOR 2022-12-20 23:29:40 Doctor Unassigned, No Un iversity of [place] DIAGNOSIS AND Name Medical Branch TREATMENT RAPID STREP SCREEN FOR 2022-05-05 01:22:00 Marcos Galicia [facility] GROUP A Medical Omar RAPID INFLUENZA A/B 2022-05-05 01:22:00 Marcos Galicia [facility] COVID-19 (ID NOW RAPID 2022-05-05 01:22:00 Marcos Galicia [facility] TESTING) Medical Branch CONSENT/REFUSAL FOR 2022-05-05 00:50:11 Doctor Unassigned, No Un iversity of [place] DIAGNOSIS AND Name Medical Branch TREATMENT NOTICE OF PRIVACY 2022-05-05 00:49:48 Doctor Unassigned, No Univ ersity of [facility] [place] [facility] POCT TEST 2021-05-17 01:56:00 Jeremiah Huynh [facility] XR LUMBAR SPINE 2 VW 2021-05-17 01:22:16 Jeremiah Huynh [facility] NOTICE OF PRIVACY 2021-05-17 00:03:46 Doctor Unassigned, No Univ ersity of [facility] Name Medical Branch CONSENT/REFUSAL FOR 2021-05-16 23:58:30 Doctor Unassigned, No Un iversity of [place] DIAGNOSIS AND Name Medical Branch TREATMENT Encounters Start End Encounter Admission Attending Care Care Encounter Source Date/Time Date/Time Type Type Clinicians Facility Department ID 2023-01-10 2023-01-10 Emergency X RANI MONTES ERT [id number] Univers 20:52:00 23:31:[address] [facility] 2023-01-10 2023-01-10 [facility] [id number] Univers 20:52:00 23:31:00 Colby BACA [id number] i ty of [place] [id number] [facility] [id number] [address] 2022-12-20 2022-12-20 Emergency [facility] [id number] Univers 18:38:00 20:42:[address] [facility] 2022-12-20 2022-12-20 Emergency [facility] [id number] Univers 18:38:00 20:42:00 Roxie VANNNED [id number] i ty of [place] [id number] [facility] [id number] [address] 2022-05-04 2022-05-04 Emergency [facility] [id number] Univers 19:09:00 20:34:00 MARCOS [facility] 2022-05-04 2022-05-04 Emergency [facility] [id number] Univers 19:09:00 20:34:00 Marcos BACA [id number] i ty of [place] [id number] [facility] [id number] [address] 2021-05-16 2021-05-16 Emergency [facility] [id number] Univers 18:37:00 21:15:[address] [facility] 2021-05-16 2021-05-[address] [facility] [id number] Univers 18:37:00 21:15:00 Jeremiah VANNTON [id number] i ty of [facility] [id number] [facility] [id number] [address] Results Test Description Test Time Test Comments Results Result Comments Source POCT TEST 2023-01-11 02:43:00 Test Item Value Reference Range Interpretation Comme nts POCT PREG (test code = 1605) Negative On board controls acceptable with C Line (test code = 3574) Yes Lab Interpretation (test code = 74063-0) [id number] 01:56:00 Test Item Value Reference Range Interpretation Comments POCT PREG (test code = 1605) negative On board controls acceptable with present C Line (test code = 3574) POCT PREG LOT # (test code = 3575) [id number] POCT PREG TEST DATE (test 07/03/2022 code = 3576) Lab Interpretation (test code = Normal 71572-8) [facility] Notes Date/Time Note Provider Source 2023-01-10 [facility] 23:29:44-00:00 Pt discharged home. Given al l education and information regarding prescriptions; pain management; s/s of worsening condition as well as specialty follow up importance. Pt verbalized understanding. Alert and ambulatory to pov with spouse. Electronically signed by Joshua Mtz RN at 0 01/10/2023 11:31 PM CDT 2023-01-10 Formatting of this note might be differe nt from the original. Joshua Mtz RN [facility] 20:53:48-00:00 Pt to ed via pov. Alert and ambulatory. C/o aching pain in both legs and states that when she touches her skin it feels like it is going to rip off. Electronically signed by Joshua Mtz RN at 0 01/10/2023 8:55 PM CDT 2022-12-20 Formatting of this note might be differe nt from the original. Marlee White RN [facility] 19:32:29-00:00 Pt given printed and verbal discharge instructions regarding cellulitis of right lower extremity, encouraged hydration, Prescriptions provided: Tylenol #3 Discussed ibuprofen and to take with food to jassi id GI distress. Discussed antibiotic therapy and to take until all completed unless adverse reaction occurs - if occurs, discontinue medication and follow up with pcp/seek medical attention Discussed Tylenol # 3 side a ffects and to avoid driving/operating machinery/or engaging in activities requiring alertness while taking. Pt verbalized understanding of instructions, pt awake alert oriented, resp reg unlabored, skin w/d, color appropriate for race, moves all ext well,pt encouraged to follow up with pcp and or general surgeon Advised to seek medical attention for new/prolon ged/worsening of symptoms, Symptoms unchanged No adverse reaction to meds given in ER noted up on discharge Awake, alert oriented, resp reg unlabored, skin w/d, pt leaving amb with steady gait, in no apparent distress, 2022-12-20 Formatting of this note might be differe nt from the original. Johann Little RN [facility] 18:34:43-00:00 Patient CO of cyst upper rig ht thigh that she tried to have lanced at [place] yesterday but they missed and couldn't get anything to drain from it, states she has had it for years. 2022-12-20 Formatting of this note is different from the or iginal. [facility] 18:28:00-00:00 Images from the original note were not included. EMERGENCY DEPARTMENT ENCOUNTER [facility] Patient Name: Yolette Ku Date of : 1995 27 year old Exam Room:[place] [address] Primary Care Physician: PATIENT DOES NOT HAVE A PCP Pre- Hospital Patient Escorted by: Self [9] Mode of Arrival: Personal means [1] EMS Treatment Prior to ED Arrival: ED Events Date/Time Event User Comments 12/20/221899 Medical Screening Begins ROXIE GUY -- 12/20/221899 First Provider Evaluation ROXIE COOPER MD -- Chief Complaint Chief Complaint Patient presents with Cyst ED Triage Notes Johann Little RN 12/20/2022 18:37 Patient CO of cyst upper rig ht thigh that she tried to have lanced at [facility] yesterday but they missed and couldn't get anything to drain from it, states she has had it for years. HPI History provided by: Patient Illness Location: Righ upper leg cellulitis Severity: Moderate Onset quality: Gradual Duration: 12 months Timing: Constant Chronicity: New Relieved by: Nothing Worsened by: Nothing Associated symptoms: no abdo jazmyne pain, no chest pain, no cough, no fatigue, no fever, no headaches, no nausea, no shortness of breath, no vomiting and no wheezing Past Medical History / Immunizations No past medical history on file. Past Surgical History No past surgical history on file. Allergies Allergies Allergen Reactions Dilaudid [Hydromorphone] Itching Hydrocodone Itching Social History Substance & Sexual Activity No substance use or sexual activity history on file. Review of Systems Review of Systems Constitutional: Negative. Ne gative for chills, fatigue, fever and unexpected weight change. HENT: Negative. Eyes: Negative. Negative for discharge and itchi ng. Respiratory: Negative. Negat saranya for cough, chest tightness, shortness of breath and wheezing. Cardiovascular: Negative. Negative for chest shahla n and palpitations. Gastrointestinal: Negative. Negative for abdominal distention, abdominal pain, nausea and vomiting. Genitourinary: Negative. Neg ative for dysuria, urgency, frequency and flank pain. Musculoskeletal: Negative. Skin: Negative. Negative for color change, pallo r and wound. Neurological: Negative. Nega tive for dizziness, syncope, light-headedness and headaches. Psychiatric/Behavioral: Nega tive. Negative for agitation and behavioral problems. All other systems reviewed and are negative. Endocrine: Endocrine negative Physical Exam ED Triage Vitals [12/20/22 1836] Weight 74.8 kg (165 lb) Actual or estimated Actual Height 1.524 m (5') BP 124/56 Pulse 87 Resp 16 Temp 37.4 ?C (99.3 ?F) Temp source Oral SpO2 Measured on Physical Exam Vitals reviewed. Constitutional: Appearance: She is well-developed. HENT: Head: Normocephalic and atraumatic. Nose: Nose normal. Eyes: Conjunctiva/sclera: Conjunctivae normal. Neck: Trachea: No tracheal deviation. Cardiovascular: Rate and Rhythm: Normal rate and regular rhythm . Heart sounds: Normal heart sounds. No murmur he anaya. No friction rub. Pulmonary: Effort: Pulmonary effort is normal. No respirat ory distress. Breath sounds: Normal breath sounds. No stridor . No wheezing or rales. Abdominal: General: Bowel sounds are normal. There is no d istension. Palpations: Abdomen is soft. Tenderness: There is no abd ominal tenderness. There is no guarding or rebound. Musculoskeletal: Cervical back: Normal range of motion and neck supple. Legs: Skin: General: Skin is warm and dry. Neurological: Mental Status: She is alert and oriented to per son, place, and time. Cranial Nerves: No cranial nerve deficit. Sensory: No sensory deficit. Psychiatric: Behavior: Behavior normal. Thought Content: Thought content normal. Judgment: Judgment normal. Labs Lab Results - No data to display Imaging No orders to display Orders and Treatments No orders of the defined types were placed in th is encounter. No orders of the defined types were placed in th is encounter. Procedures Procedures Notes & MDM Patient was evaluated for an emergency medical c ondition related to Cyst . History and/or review of systems is limited by:H istory limited: None. Diagnosis/Impression as of 12/20/221911 Cellulitis of right lower extremity Medical Decision Making Limitations to patient care and compliance: none . Assessment/Summary: History, physical exam findi ngs, results of visit, differential diagnosis, medication regimens and plan of future care have been considered. Additional MDM may be found in the ED course. Differential di agnosis considered and final disposition made based on information gathered during evaluation and may not be completely ruled out or specifically listed. Vital signs were rechecked before final disposition. Diagnosis Final diagnoses: None Disposition & Follow Up ED Disposition None Patient's Medications START taking these medications No medications on file CONTINUE taking these medications which have NOT CHANGED ACETAMINOPHEN-CODEINE 300-3 0 MG TABLET Take 1 tablet by mouth every 4 (four) hours as needed for Pain (scale 4-6). Indications: acute pain BENZONATATE 100 MG CAPSULE Take 1 capsule by mouth 3 (three) times daily as needed for Cough. NAPROXEN (NAPROSYN) 500 MG TABLET Take 1 tablet by mouth 2 (two) times daily with meals. START taking Modified Medications as Prescribed No medications on file STOP taking these medications No medications on file Roxie Cooper Jr., MD Clinical Piece Meat Trimmer [facility] Emergency Department Effective Measure Dictation Software is used frequently and may produce errors. Promptly contact for obvious discrepancies. Roxie Cooper MD 12/20/221914 L
--- NOTE | 2023-01-15 14:41 | RAD REPORT ---
EXAM DESCRIPTION: RAD - Knee Right 3 View - 01/15/2023 2:13 pm CLINICAL HISTORY: dog bite COMPARISON: No comparisons TECHNIQUE: Right knee, 3 views. FINDINGS: No fracture, dislocation or periosteal reaction.No joint effusion seen. No joint space robert rowing. No soft tissue abnormality. Clinical concerns for internal derangement or occult bony injury could be further assessed with MR im aging. IMPRESSION: Negative right knee.
--- NOTE | 2023-01-15 14:57 | EDPHYS ---
Physician Documentation [facility] Name: Yolette Ku Age: 28 yrs Sex: Female : 1995 Arrival Date: 01/15/2023 Time: 13:11 Bed 10 Private MD: ED Physician Burt Hines HPI: 01/15 13:49 This 28 yrs old Female presents to ER via Wheelchair with complaints of Dog Bite. rn 13:49 The patient was bitten on the right leg. Onset: The symptoms/episode began/occurred rn just prior to arrival. Animal information: Animal's vaccinations are up to date. Secondary to the bite the patient reports a puncture wound. Severity of symptoms: At their worst the symptoms were moderate, in the emergency department the symptoms have improved. The patient has not experienced similar symptoms in the past. Pt reports got between 2 of her dogs fighting, suffered puncture wound to right thigh. NO other injury. Dogs vaccine status up to date and acting normal. . 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 - Social history:: Smoking status: Reported history of juuling and/or vaping. - Family history:: not pertinent. - Hospitalizations: : No recent hospitalization is reported. ROS: 13:49 Constitutional: Negative for fever, chills, and weight loss, Cardiovascular: Negative rn for chest pain, palpitations, and edema, Respiratory: Negative for shortness of breath, cough, wheezing, and pleuritic chest pain, Abdomen/GI: Negative for abdominal pain, nausea, vomiting, diarrhea, and constipation, MS/Extremity: + dog bite to right thigh Skin: + puncture wound to right thigh Neuro: Negative for weakness, numbness, tingling, and seizure. Exam: 13:49 Constitutional: This is a well developed, well nourished patient who is awake, alert, rn and in no acute distress. MS/ Extremity: Pulses equal, no cyanosis. Neurovascular intact. Tender with ecchymosis just proximal to right knee with small 1.5 cm puncture wound, no active bleeding or arterial bleeding. Vital Signs: 13:34 BP 135 / 66; Pulse 87; Resp 17; Pulse Ox 96% ; Weight 74.84 kg; Pain 7/10; ap3 15:00 BP 132 / 71; Pulse 74; Resp 18; Pulse Ox 99% on R/A; mb9 13:34 Pain Scale: Adult ap3 MDM: 13:18 Patient medically screened. rn 14:55 Differential diagnosis: superficial laceration. Data reviewed: vital signs, nurses rn notes, radiologic studies, and as a result, I will discharge patient. Counseling: I had a detailed discussion with the patient and/or guardian regarding: the historical points, exam findings, and any diagnostic results supporting the discharge/admit diagnosis, radiology results, the need for outpatient follow up, to return to the emergency department if symptoms worsen or persist or if there are any questions or concerns that arise at home. Refusal of service: The patient/guardian displays adequate decision making capability and despite a detailed discussion of alternatives, benefits, risks, and consequences refuses: sutures or trish. Special discussion: I discussed with the patient/guardian in detail that at this point there is no indication for admission to the hospital. It is understood, however, that if the symptoms persist or worsen the patient needs to return immediately for re-evaluation. ED course: Pt declines sutures or trish. States has had multiple lacerations and heals fine without stitches. Return precautions given and understood. . 01/15 13:28 Order name: XRAY Knee RIGHT 3 view; Complete Time: 14:46 rn 01/15 13:28 Order name: Wound Care; Complete Time: 13:34 rn 01/15 13:28 Order name: Ice pack; Complete Time: 13:34 rn 01/15 13:28 Order name: Wound dressing; Complete Time: 13:34 rn Administered Medications: No medications were administered Disposition Summary: 01/15/23 14:56 Discharge Ordered Location: Home rn Problem: new rn Symptoms: have improved rn Condition: Stable rn Diagnosis - Bitten by dog - Uncomplicated(01/15/23 14:56) rn Followup: rn - With: Private Physician - When: As needed - Reason: Recheck today's complaints, Re-evaluation by your physician Discharge Instructions: - Discharge Summary Sheet rn - Animal Bite, Adult rn Forms: - Medication Reconciliation Form rn - Thank You Letter rn - Antibiotic burnisher - Prescription Opioid Use rn - Patient Portal Instructions rn - Leadership Thank You Letter rn Prescriptions: - Doxycycline Monohydrate 100 mg Oral Tablet - take 1 tablet by ORAL route every 12 hours for 10 days; 20 tablet; Refills: 0, rn Product Selection Permitted Signatures: Dispatcher [employer] Burt Richmond MD MD rn Prokisch, Amanda, RN RN ap3 Corrections: (The following items were deleted from the chart) 14:56 14:56 Bitten by dog rn rn
--- NOTE | 2023-01-15 14:57 | ER ---
Nurse's Notes [facility] Name: Yolette Ku Age: 28 yrs Sex: Female : 1995 Arrival Date: 01/15/2023 Time: 13:11 Bed 10 Private MD: Diagnosis: Bitten by dog-Uncomplicated Presentation: 01/15 13:34 Chief complaint: Patient states: her dog bit her on her right upper leg when the two ap3 dogs were fighting. Coronavirus screen: At this time, the client does not indicate any symptoms associated with coronavirus-19. Ebola Screen: No symptoms or risks identified at this time. Initial Sepsis Screen: Does the patient meet any 2 criteria? No. Patient's initial sepsis screen is negative. Does the patient have a suspected source of infection? No. Patient's initial sepsis screen is negative. Risk Assessment: Do you want to hurt yourself or someone else? Patient reports no desire to harm self or others. Onset of symptoms was January 15, 2023. 13:34 Method Of Arrival: Wheelchair ap3 13:34 Acuity: JIM 4 ap3 Triage Assessment: 13:35 Bite description: bite sustained to medial aspect of right thigh by a dog. General: ap3 Appears in no apparent distress. Behavior is calm, cooperative, appropriate for age. Pain: Complains of pain in medial aspect of right thigh. Neuro: Level of Consciousness is awake, alert, obeys commands, Oriented to person, place, time, situation. Cardiovascular: Patient's skin is warm and dry. Respiratory: Airway is patent Respiratory effort is even, unlabored, Respiratory pattern is regular, symmetrical. Derm: Wound noted medial aspect of right thigh. 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 - Social history:: Smoking status: Reported history of juuling and/or vaping. - Family history:: not pertinent. - Hospitalizations: : No recent hospitalization is reported. Screenin:36 Abuse screen: Denies threats or abuse. Nutritional screening: No deficits noted. ap3 Tuberculosis screening: No symptoms or risk factors identified. 13:40 [facility] ED Fall Risk Assessment (Adult) History of falling in the last 3 months, mb9 including since admission No falls in past 3 months (0 pts) Confusion or Disorientation No (0 pts) Intoxicated or Sedated No (0 pts) Impaired Gait No (0 pts) Mobility Assist Device Used No (0 pt) Altered Elimination No (0 pt) Score/Fall Risk Level 0 - 2 = Low Risk Oriented to surroundings, Maintained a safe environment, Educated pt \T\ family on fall prevention, incl call for assistance when getting out of bed. Assessment: 13:40 Reassessment: No changes from previously documented assessment. Patient and/or family mb9 updated on plan of care and expected duration. Pain level reassessed. Patient is alert, oriented x 3, equal unlabored respirations, skin warm/dry/pink. 13:50 Reassessment: Dog bite reported to [place] [employer]. mb9 14:59 Reassessment: No changes from previously documented assessment. Patient and/or family mb9 updated on plan of care and expected duration. Pain level reassessed. Patient is alert, oriented x 3, equal unlabored respirations, skin warm/dry/pink. Vital Signs: 13:34 BP 135 / 66; Pulse 87; Resp 17; Pulse Ox 96% ; Weight 74.84 kg; Pain 7/10; ap3 15:00 BP 132 / 71; Pulse 74; Resp 18; Pulse Ox 99% on R/A; mb9 13:34 Pain Scale: Adult ap3 ED Course: 13:11 Patient arrived in ED. rg4 13:18 Burt Hines MD is Attending Physician. rn 13:34 Naida Almaguer RN is Primary Nurse. mb9 13:35 Triage completed. ap3 13:36 Arm band placed on right wrist. ap3 13:37 Patient has correct armband on for positive identification. Call light in reach. Side ap3 rails up X 1. 13:41 Patient did not have IV access during this emergency room visit. mb9 14:14 XRAY Knee RIGHT 3 view In Process Unspecified. EDMS 14:35 No provider procedures requiring assistance completed. mb9 Administered Medications: No medications were administered Medication: 13:40 VIS not applicable for this client. mb9 Outcome: 14:56 Discharge ordered by . rn 15:00 Discharged to home ambulatory. mb9 15:00 Condition: stable 15:00 Discharge instructions given to patient, Instructed on discharge instructions, follow up and referral plans. Demonstrated understanding of instructions, follow-up care. 15:04 Patient left the ED. mb9 Signatures: Dispatcher [employer] EDBurt Lyons MD MD rn Garcia, Rubi rg4 Diana Kennedy RN RN vaughn3 Naida Almaguer RN RN mb9
[2023-01-15 15:28] VITALS: BP 132/71; O2SAT 99
== END 2023-01-15 15:04 | disposition home or self-care (01) ==
LOC: ER 13:11
DX: S70.371A Other superficial bite of right thigh, initial encounter (principal); W54.0XXA Bitten by dog, initial encounter; Z88.5 Allergy status to narcotic agent
CPT/HCPCS: 99282

== ENCOUNTER 2023-04-03 14:00 | Emergency (ER) | payer OTHER, SELFPAY ==
--- OUTSIDE RECORDS SUMMARY | 2023-04-03 14:03 | XMS REPORT | Continuity of Care Document ---
:1995 Author Organization [facility] t Address [address] [facility] [address] [place] [address] Care Team Providers Name Role Phone PCP, PATIENT DOES NOT HAVE A Primary Care Physician Unavaila ble COLBY MONTES Attending Clinician Unavailable ROXIE VILLAGOMEZ Attending Clinician Unavailable Roxie Villagomez MD Attending Clinician MARCOS GALICIA Attending Clinician [...] ALLERGIE Class ity of [facility] Social History Social Habit Start Date Stop Date Quantity Comments Source [facility] Sexual orientation Univer [facility] Exposure to 2022-04-24 2022-05-04 Not sure [facility] SARS-CoV-2 (event) 00:00:00 19:02:00 Medica l Branch Sex Assigned At [birth year] [facility] 00:00:00 00:00:00 Medical Branch Smoking Status Start Date Stop Date Source Tobacco smoking consumption [facility] unknown Branch Medications Ordered Filled Start Stop Current Ordering Indication Dosage Frequency Signature Comments Components Source Medication Medication Date Date Medication? Clinician (SIG) Name Name ketorolac 2022- No 30mg 30 mg, Unive rs (TORADOL) 01-11 Intramuscu ity of injection 03:15: 02:44 lar, ONCE, [place] 30 mg 00 :00 1 dose, On [facility] Branch 01/10/23 at 2215, Routine methylPREDN Yes [id number] Take by Univers ISolone 8-10 mouth ity of (MEDROL, 00:00: SEE-INSTRU Omar as LICHA,) 4 mg 00 CTIONS. Medica l tablets follow Branch package directions cyclobenzap Yes [id number] 10mg Take 1 Univers rine 10 mg 8-10 tablet by ity of tablet 00:00: mouth [place] 00 every 8 Medical (eight) Branch hours as needed for Muscle Spasms. ketorolac 2022- No 30mg 30 mg, Unive rs (TORADOL) 12-21 Intramuscu ity of injection 01:15: 00:13 lar, ONCE, [place] 30 mg 00 :00 1 dose, On Medical [facility] Branch 12/20/22 at 2015, Routine acetaminoph 2022-0 Yes [id number] 1{tbl} Take 1-2 Univers en-codeine 7-20 tablets by ity of 300-30 mg 00:00: mouth [place] tablet 00 every 6 Medical (six) Branch hours as needed for Pain (scale 4-6). Indication s: acute pain acetaminoph 2022-0 Yes [id number] 1{tbl} Take 1-2 Univers en-codeine 7-20 tablets by ity of 300-30 mg 00:00: mouth [place] tablet 00 every 6 Medical (six) Branch hours as needed for Pain (scale 4-6). Indication s: acute pain dexamethaso 2021-06 No 10mg 10 mg, Uni vers ne sod phos 07-0603 Intramuscu i ty of PF 02:00: 01:54 lar, ONCE, [place] injection 00 :00 1 dose, On Medi mary 10 mg Fri Branch 05/04/22 at 2000, 1 mL benzonatate 2021-06 Yes [id number] 100mg Take 1 Univers 100 mg 2-02 capsule by ity of capsule 00:00: mouth 3 [place] 00 (three) Medical times Branch daily as needed for Cough. benzonatate 2021-06 Yes [id number] 100mg Take 1 Univers 100 mg 2-02 capsule by ity of capsule 00:00: mouth 3 [place] 00 (three) Medical times Branch daily as needed for Cough. benzonatate 2021-06 Yes [id number] 100mg Take 1 Univers 100 mg 2-02 capsule by ity of capsule 00:00: mouth 3 [place] 00 (three) Medical times Branch daily as needed for Cough. cefdinir 2021-06 No [id number] 300mg Take 1 U nivers 300 mg 07-05- capsule by ity of capsule 00:00: 05:59 mouth in [place] 00 :00 the Medical morning Branch and 1 capsule in the evening. Do all this for 10 days. predniSONE 2021-06 No [id number] 20mg Take 1 Univers 20 mg -07 15-07 tablet by ity of tablet 00:00: 05:59 mouth in [place] 00 :00 the Medical morning Branch and [...] 05/16/21 at 1999, Routine naproxen 2020-06 Yes [id number] 500mg Take 1 U nivers (NAPROSYN) 2-14 [...] Indication s: acute pain naproxen 2020-06 Yes [id number] 500mg Take 1 U nivers (NAPROSYN) 2-14 [...] Indication s: acute pain naproxen 2020-06 Yes [id number] 500mg Take 1 U nivers (NAPROSYN) 2-14 tablet by ity of 500 mg 00:00: mouth 2 [place] tablet 00 (two) Medical times Branch daily with meals. naproxen 2020-06 Yes [id number] 500mg Take 1 U nivers (NAPROSYN) 2-14 [...] 78 /min Universi ty of [facility] Respiratory rate 2023-01-11 04:00:00 16 /min Univ ersity of [facility] Oxygen saturation in 2023-01-11 04:00:00 98 /min University of Arterial blood by [facility] Pulse oximetry Branch Systolic blood 2023-01-11 01:56:00 120 mm[Hg] Univer sity of pressure [facility] Diastolic blood 2023-01-11 01:56:00 66 mm[Hg] Unive rsity of [facility] Body temperature 2023-01-11 01:56:00 36.89 Patti Univ ersity [facility] Body height 2023-01-11 01:56:00 152.4 cm Universi ty of [facility] Body weight 2023-01-11 01:56:00 74.844 kg Universi ty of [facility] Branch BMI 2023-01-11 01:56:00 32.22 kg/m2 Universi ty of [facility] Oxygen saturation in 2022-12-21 00:09:53 98 /min University of Arterial blood by [facility] Pulse oximetry Branch Systolic blood 2022-12-20 23:36:00 124 mm[Hg] Univer sity of [facility] Diastolic blood 2022-12-20 23:36:00 56 mm[Hg] Unive rsity of [facility] Heart rate 2022-12-20 23:36:00 87 /min Universi ty of [facility] Body temperature 2022-12-20 23:36:00 37.39 Patti Univ ersity of [facility] Branch Respiratory rate 2022-12-20 23:36:00 16 /min Univ ersity of [facility] Body height 2022-12-20 23:36:00 152.4 cm Universi ty of [facility] Body weight 2022-12-20 23:36:00 74.844 kg Universi ty of [facility] BMI 2022-12-20 23:36:00 32.22 kg/m2 Universi ty of [place] [facility] Body height 2022-05-05 01:07:00 152.4 cm Universi ty of [place] [facility] Body weight 2022-05-05 01:07:00 74.844 kg Universi ty of [place] [facility] BMI 2022-05-05 01:07:00 32.22 kg/m2 Universi ty of [place] [facility] Oxygen saturation in 2022-05-05 01:07:00 100 /min University of Arterial blood by [place] [facility] Pulse oximetry Branch Systolic blood 2022-05-05 01:07:00 140 mm[Hg] Univer sity of pressure [place] [facility] [place] Diastolic blood 2022-05-05 01:07:00 70 mm[Hg] Unive rsity of pressure [place] [facility] [place] Heart rate 2022-05-05 01:07:00 91 /min Universi ty of [place] [facility] [place] Body temperature 2022-05-05 01:07:00 37.17 Patti Univ ersity of [place] [facility] [place] Respiratory rate 2022-05-05 01:07:00 20 /min Univ ersity of [place] [facility] Systolic blood 2021-05-17 00:35:00 121 mm[Hg] Univer sity of pressure [place] [facility] Diastolic blood 2021-05-17 00:35:00 62 mm[Hg] Unive rsity of pressure [place] [facility] [place] Heart rate 2021-05-17 00:35:00 69 /min Universi ty of [place] [facility] [place] Body temperature 2021-05-17 00:35:00 36.78 Patti Univ ersity of [place] [facility] [place] Respiratory rate 2021-05-17 00:35:00 18 /min Univ ersity of [place] [facility] [place] Body height 2021-05-17 00:35:00 152.4 cm Universi ty of [place] [facility] Body weight 2021-05-17 00:35:00 75.297 kg Universi ty of [place] [facility] BMI 2021-05-17 00:35:00 32.42 kg/m2 Universi ty of [place] [facility] [place] Oxygen saturation in 2021-05-17 00:35:00 100 /min University of Arterial blood by [place] Cylex mary Pulse oximetry Branch Procedures Procedure Date / Time Performed Performing Clinician [facility] ASSIGNMENT OF BENEFITS 2023-01-11 02:55:45 Doctor Unassigned, No [facility] URINALYSIS 2023-01-11 02:43:00 Colby Montes [facility] POCT TEST 2023-01-11 02:43:00 [facility] [place] NOTICE OF PRIVACY 2023-01-11 01:44:59 Doctor Unassigned, No Univ ersity [facility] Name Medical Branch CONSENT/REFUSAL FOR 2023-01-11 01:43:39 Doctor Unassigned, No Un iversity of [place] DIAGNOSIS AND Name Medical Branch TREATMENT ASSIGNMENT OF BENEFITS 2022-12-21 00:28:40 Doctor Unassigned, No [facility] Medical Branch CONSENT/REFUSAL FOR 2022-12-20 23:29:40 Doctor Unassigned, No Un iversity of [place] DIAGNOSIS AND Name Medical Branch TREATMENT RAPID STREP SCREEN FOR 2022-05-05 01:22:00 Marcos Galicia [facility] GROUP A Medical [place] RAPID INFLUENZA A/B 2022-05-05 01:22:00 Marcos Galicia [facility] COVID-19 (ID NOW RAPID 2022-05-05 01:22:00 Marcos Galicia [facility] TESTING) Medical Branch CONSENT/REFUSAL FOR 2022-05-05 00:50:11 Doctor Unassigned, No Un iversity of [place] DIAGNOSIS AND Name Medical Branch TREATMENT NOTICE OF PRIVACY 2022-05-05 00:49:48 [facility]igned, [facility] 2021-05-17 01:56:00 Jeremiah Huynh [facility] XR LUMBAR SPINE 2 VW 2021-05-17 01:22:16 Jeremiah Huynh [facility] NOTICE OF PRIVACY 2021-05-17 00:03:46 Doctor Unassigned, No Univ ersity of [facility] Name Medical Branch CONSENT/REFUSAL FOR 2021-05-16 23:58:30 Doctor Unassigned, No Un iversity of [place] DIAGNOSIS AND Name Medical Branch TREATMENT Encounters Start End Encounter Admission Attending Care Care Encounter Source Date/Time Date/Time Type Type Clinicians Facility Department ID 2023-01-10 2023-01-10 Emergency X RANI MONTES ERT [id number] Univers 20:52:00 23:31:00 COLBY itlisha [facility] 2023-01-10 2023-01-10 [facility] [id number] Univers 20:52:00 23:31:00 Colby BACA [id number] i ty of [place] [id number] [facility] [id number] [address] 2022-12-20 2022-12-20 Emergency [facility] [id number] Univers 18:38:00 20:42:00 ROXIE lees [facility] 2022-12-20 2022-12-20 [facility] [id number] Univers 18:38:00 20:42:00 Roxie BACA [id number] i ty of [place] [id number] [facility] [id number] [address] 2022-05-04 2022-05-04 Emergency [facility] [id number] Univers 19:09:00 20:34:00 MAROCS [facility] 2022-05-04 2022-05-04 Emergency [facility] [id number] Univers 19:09:00 20:34:00 Marcos BACA [id number] i ty of [place] [id number] [place] [id number] 2021-05-16 2021-05-16 Emergency [facility] E[facility] [id number] Univers 18:37:00 21:15:00 JEREMIAH lisha [facility] 2021-05-16 2021-05-16 Emergency [facility] [id number] Univers 18:37:00 21:15:00 Jeremiah VANNTON [id number] i [facility] [id number] [facility] [id number] [address] Results Test Description Test Time Test Comments Results Result Comments Source POCT TEST 2023-01-11 02:43:00 Test Item Value Reference Range Interpretation Comme nts POCT PREG (test code = 1605) Negative On board controls acceptable with C Line (test code = 3574) Yes Lab Interpretation (test code = 06703-5) [id number]:56:00 Test Item Value Reference Range Interpretation Comments POCT PREG (test code = 1605) negative On board controls acceptable with present C Line (test code = 3574) POCT PREG LOT # (test code = 3575) [id number] POCT PREG TEST DATE (test 07/03/2022 code = 3576) Lab Interpretation (test code = Normal 53833-6) [facility]
[2023-04-03 14:36] LABS: Absolute Lymphocytes (CBC) 2.4 K/uL (0.7-4.9); Hematocrit 39.9 % (36.0-45.0); Lymphocytes % 36.3 % (15.3-44.8); MCV 90.9 fL (80-100); MPV 7.8 fL (7.6-11.3); Platelets 259 thou/uL (152-406); RBC Red Blood Cell Count 4.39 M/uL (3.86-4.86)
[2023-04-03 14:45] LABS: BUN Blood Urea Nitrogen 9 mg/dL (7-18); Bicarbonate 28 mEq/L (21-32); Glomerular Filtration Rate 103 ml/min (=/>90); Glucose Level 130 mg/dL (74-106); Potassium 3.3 mEq/L (3.5-5.1); Sodium Level 137 mEq/L (136-145)
[2023-04-03 14:49] LABS: Troponin High Sensitivity < 3.0 pg/mL (<58.9)
[2023-04-03] MEDS ORDERED: POTASSIUM CL SA 10 MEQ TAB PO ONE (15:46)
[2023-04-03] MEDS ORDERED: ONDANSETRON 4 MG/2 ML VIAL ONE (15:46)
[2023-04-03] MEDS ORDERED: KETOROLAC 30 MG/ML INJ ONE (15:46)
--- NOTE | 2023-04-03 17:00 | RAD REPORT ---
[facility] 3[facility]52 [facility] CLINICAL HISTORY: CHEST PAIN COMPARISON: Chest Single View dated 12/18/2021; Stone Protocol dated 09/15/2022 TECHNIQUE: Portable AP view of the chest. FINDINGS: Perihilar hazy opacities and interstitial prominence. No focal consolidation. No pneumoth orax or effusion. The cardiomediastinal contours are unremarkable. IMPRESSION: Findings suggestive of mild central congestion or early pulmonary edema. No evidence of focal pneumonia.
--- NOTE | 2023-04-03 17:15 | ER ---
Nurse's Notes [facility] Name: Yolette Ku Age: 28 yrs Sex: Female : 1995 Arrival Date: 04/03/2023 Time: 14:00 Bed 15 Private MD: Diagnosis: Chest pain, unspecified Presentation: 04/03 14:07 Chief complaint: Patient states: "I've had chest pain and SOB on and off since mb9 yesterday. It feels like pressure and I feel nauseous". Coronavirus screen: Vaccine status: Patient reports receiving the 2nd dose of the covid vaccine. Ebola Screen: No symptoms or risks identified at this time. Initial Sepsis Screen: Does the patient meet any 2 criteria? No. Patient's initial sepsis screen is negative. Does the patient have a suspected source of infection? No. Patient's initial sepsis screen is negative. Risk Assessment: Do you want to hurt yourself or someone else? Patient reports no desire to harm self or others. Onset of symptoms was April 03, 2023. 14:07 Method Of Arrival: Ambulatory mb9 14:07 Acuity: JIM 3 mb9 Triage Assessment: 14:09 General: Appears in no apparent distress. Behavior is cooperative. Pain: Complains of mb9 pain in chest Pain does not radiate. Pain currently is 8 out of 10 on a pain scale. Quality of pain is described as pressure, Pain began 1 day ago. EENT: No signs and/or symptoms were reported regarding the EENT system. Neuro: Vo Agitation-Sedation Scale (RASS): 0 - Alert and Calm Level of Consciousness is awake, alert, obeys commands, Oriented to person, place, time, situation, Appropriate for age. Cardiovascular: Reports chest pain, shortness of breath, Patient's skin is warm and dry. Respiratory: Reports shortness of breath Airway is patent Respiratory effort is even, unlabored, Respiratory pattern is regular, symmetrical. GI: Reports nausea. : No signs and/or symptoms were reported regarding the genitourinary system. Derm: Skin is pink, warm \\T\\ dry. Musculoskeletal: Range of motion: intact in all extremities. Historical: - Allergies: 14:09 Dilaudid; mb9 14:09 Vicodin; mb9 - PMHx: 14:09 Migraine; mb9 - PSHx: 14:09 Appendectomy; section; Cholecystectomy; ear tubes; tubes tied; mb9 - Immunization history:: Adult Immunizations up to date. - Social history:: Smoking status: Reported history of juuling and/or vaping. Screenin:32 [facility] ED Fall Risk Assessment (Adult) History of falling in the last 3 months, tm6 including since admission No falls in past 3 months (0 pts). Abuse screen: Denies threats or abuse. Denies injuries from another. Nutritional screening: No deficits noted. Tuberculosis screening: No symptoms or risk factors identified. Assessment: 15:32 Reassessment: Patient appears in no apparent distress at this time. General: Appears in tm6 no apparent distress. Behavior is calm, cooperative, appropriate for age. Pain: Complains of pain in chest Quality of pain is described as pressure. Neuro: Level of Consciousness is awake, alert, obeys commands, Oriented to person, place, time, situation, Appropriate for age. Cardiovascular: Reports chest pain, Capillary refill < 3 seconds Patient's skin is warm and dry. Respiratory: Airway is patent Respiratory effort is even, unlabored, Respiratory pattern is regular, symmetrical. GI: Abdomen is round non-distended. : No signs and/or symptoms were reported regarding the genitourinary system. EENT: No signs and/or symptoms were reported regarding the EENT system. 15:32 Derm: Musculoskeletal: No signs and/or symptoms reported regarding the musculoskeletal tm6 system. Vital Signs: 14:07 BP 129 / 50; Pulse 85; Resp 18; Temp 98; Pulse Ox 100% on R/A; Weight 77.11 kg; Height mb9 5 ft. 0 in. ; Pain 8/10; 15:32 BP 142 / 76; Pulse 89; Resp 24; Temp 98.4(TE); Pulse Ox 99% on R/A; tm6 16:52 BP 105 / 57; Pulse 76; Resp 18; Pulse Ox 99% on R/A; ld1 14:07 Body Mass Index 33.20 (77.11 kg, 152.4 cm) mb9 14:07 Pain Scale: Adult mb9 Vitals: 15:32 Cardiac Rhythm Assessment Regular Sinus rhythm. tm6 ED Course: 14:06 Patient arrived in ED. im 14:08 Cody Escobar MD is Attending Physician. ec2 14:09 Triage completed. mb9 14:09 Arm band placed on. mb9 14:29 Basic Metabolic Panel Sent. bc6 14:29 CBC with Diff Sent. bc6 14:29 Troponin HS Sent. bc6 14:29 Inserted saline lock: 20 gauge in left antecubital area, using aseptic technique. Blood bc6 collected. 15:18 Patient placed in an exam room, on a stretcher. tm6 15:32 Debbie Denise, RN is Primary Nurse. tm6 15:32 Patient has correct armband on for positive identification. Bed in low position. Call tm6 light in reach. Side rails up X 1. Provided Education on: medications. Client placed on continuous cardiac and pulse oximetry monitoring. NIBP monitoring applied. bargeman on. Door closed. Noise minimized. Warm blanket given. 15:32 No provider procedures requiring assistance completed. Patient maintains SpO2 tm6 saturation greater than 95% on room air. 15:54 XRAY Chest (1 view) In Process Unspecified. EDMS 17:15 Ramesh Briones DO is Referral Physician. ec2 17:20 IV discontinued, intact, bleeding controlled, No redness/swelling at site. ld1 Administered Medications: 15:37 Drug: Potassium Chloride PO 40 mEq PO once Route: PO; ld1 15:38 Drug: Ketorolac IVP 15 mg IVP once Route: IVP; Site: left antecubital; ld1 15:38 Drug: Ondansetron IVP 4 mg IVP once; over 2 minutes Route: IVP; Site: left antecubital; ld1 Medication: 15:32 VIS not applicable for this client. tm6 Outcome: 17:15 Discharge ordered by . ec2 17:20 Discharged to home ambulatory, with family, ld1 17:20 Condition: stable 17:20 Discharge instructions given to patient, Instructed on discharge instructions, follow up and referral plans. Demonstrated understanding of instructions, follow-up care, 17:20 Patient left the ED. ld1 Signatures: Dispatcher [employer] EDTrixie Christiansen, RN RN ld1 Naida Almaguer, RN RN mb9 Cari Ogden bc6 Nila Frank Edwin, MD MD ec2 Debbie Denise, RN RN tm6
--- NOTE | 2023-04-03 17:15 | EDPHYS ---
Physician Documentation [facility] Name: Yolette Ku Age: 28 yrs Sex: Female : 1995 Arrival Date: 04/03/2023 Time: 14:00 Bed 15 Private MD: ED Physician Cody Escobar HPI: 04/03 14:17 This 28 yrs old Female presents to ER via Ambulatory with complaints of Chest ec2 Pain. 14:17 Patient arrives today due to concern for chest pain. States that the pain been ongoing ec2 since yesterday. States that the pain is intermittent without specific relieving and exacerbating factors. States that she also feels a palpitations as well as nausea. Denies any abdominal pain, denies any significant shortness of breath, denies any cough or cold symptoms, denies any leg swelling. Patient reports a history of anxiety as well as migraines, denies any similar episodes to this. Patient states she has not taken any medications for this pain.. Historical: - Allergies: 14:09 Dilaudid; mb9 14:09 Vicodin; mb9 - PMHx: 14:09 Migraine; mb9 - PSHx: 14:09 Appendectomy; section; Cholecystectomy; ear tubes; tubes tied; mb9 - Immunization history:: Adult Immunizations up to date. - Social history:: Smoking status: Reported history of juuling and/or vaping. ROS: 14:17 Constitutional: as per hpi ec2 Exam: 14:17 Constitutional: GEN: NAD Head: atraumatic Eyes: EOMI Ears: External ears are ec2 normal. CV: regular rate, regular rhythm LUNGS: no respiratory distress, no wheezes, rales, rhonchi ABD: non-distended SKIN: no evidence of rashes MSK: no evidence of trauma NEURO: moves all extremities equally Vital Signs: 14:07 BP 129 / 50; Pulse 85; Resp 18; Temp 98; Pulse Ox 100% on R/A; Weight 77.11 kg; Height mb9 5 ft. 0 in. ; Pain 8/10; 15:32 BP 142 / 76; Pulse 89; Resp 24; Temp 98.4(TE); Pulse Ox 99% on R/A; tm6 16:52 BP 105 / 57; Pulse 76; Resp 18; Pulse Ox 99% on R/A; ld1 14:07 Body Mass Index 33.20 (77.11 kg, 152.4 cm) mb9 14:07 Pain Scale: Adult mb9 MDM: 14:08 Patient medically screened. ec2 14:17 Data reviewed: vital signs. ED course: Patient arrives today for evaluation of ec2 atraumatic chest pain. Examination remarkable for well-appearing nontoxic individual is otherwise in no acute distress. Will obtain lab work, EKG, chest x-ray, treat the patient symptoms with Toradol as well as Zofran. Currently considering ACS, suspicion for PE or dissection, low suspicion for pneumonia. Patient considering palpitation/electrolyte disturbances.. 14:28 ED course: EKG independently reviewed and interpreted by me, shows normal sinus rhythm, ec2 rate of 79, no acute ST segment elevations, intervals nonconcerning, nonspecific T wave abnormalities noted in the lead V3.. 15:02 ED course: Patient's lab work remarkable for slight hypokalemia, reassuring CBC, ec2 troponin that is undetectable. . 16:38 ED course: Chest x-ray independently reviewed and interpreted by me, shows no acute ec2 intrathoracic process.. 17:08 ED course: Chest x-ray independently reviewed and interpreted by me, shows no ec2 cardiomegaly, mild vascular congestion noted, no evidence of focal pneumonia. On reassessment patient is well-appearing no acute distress. Will discharge home and follow-up with primary care doctor. Return precautions given.. 04/03 14:16 Order name: Basic Metabolic Panel; Complete Time: 15:01 ec2 04/03 14:16 Order name: CBC with Diff; Complete Time: 15:01 ec2 04/03 14:16 Order name: Troponin HS; Complete Time: 15:01 ec2 04/03 14:16 Order name: XRAY Chest (1 view); Complete Time: 17:08 ec2 04/03 14:16 Order name: EKG; Complete Time: 14:17 ec2 04/03 14:16 Order name: Cardiac monitoring; Complete Time: 15:31 ec2 04/03 14:16 Order name: EKG - Nurse/Tech; Complete Time: 14:25 ec2 04/03 14:16 Order name: IV Saline Lock; Complete Time: 14:28 ec2 04/03 14:16 Order name: Labs collected and sent; Complete Time: 14:28 ec2 04/03 14:16 Order name: O2 Per Protocol; Complete Time: 15:30 ec2 04/03 14:16 Order name: O2 Sat Monitoring; Complete Time: 15:30 ec2 Administered Medications: 15:37 Drug: Potassium Chloride PO 40 mEq PO once Route: PO; ld1 15:38 Drug: Ketorolac IVP 15 mg IVP once Route: IVP; Site: left antecubital; ld1 15:38 Drug: Ondansetron IVP 4 mg IVP once; over 2 minutes Route: IVP; Site: left antecubital; ld1 Disposition Summary: 04/03/23 17:15 Discharge Ordered Condition: Stable ec2 Diagnosis - Chest pain, unspecified ec2 Followup: ec2 - With: Ramesh Briones DO - When: - Reason: Continuance of care Discharge Instructions: - Discharge Summary Sheet ec2 - Nonspecific Chest Pain, Adult ec2 Forms: - Medication Reconciliation Form ec2 - Thank You Letter ec2 - Antibiotic Education ec2 - Prescription Opioid Use ec2 - Patient Portal Instructions ec2 - Leadership Thank You Letter ec2 Signatures: Dispatcher [employer] Trixie Allen RN RN ld1 Naida Almaguer RN RN mb9 Cody Escobar MD MD ec2
[2023-04-03 18:02] VITALS: TEMP 98.4; O2SAT 99
[2023-04-03 18:03] VITALS: BP 105/57
--- NOTE | 2023-04-04 09:48 | EKG ---
Test Date: 2023-04-03 Test Time: 14:25:29 Family Medicine Physician Assistant: DANTE MEASUREMENT RESULTS: Intervals: Rate: 79 IL: 144 QRSD: 88 QT: 382 QTc: 438 [place]: P: 78 [place]: 144 QRS: 55 T: -61 INTERPRETIVE STATEMENTS: Normal sinus rhythm Nonspecific ST and T wave abnormality Abnormal ECG Compared to ECG 09/07/2022 20:43:36 No significant changes Electronically Signed On 04-04-23 09:46:05 CDT by Humberto Calix
== END 2023-04-03 17:20 | disposition home or self-care (01) ==
LOC: ER 14:00
DX: R07.89 Other chest pain (principal)
CPT/HCPCS: 36415; 71045; 80048; 84484; 85025; 93005; 96374; 96375; 99285; J2405

== ENCOUNTER 2023-04-30 18:37 | Emergency (ER) | payer SELFPAY ==
--- OUTSIDE RECORDS SUMMARY | 2023-04-30 18:40 | XMS REPORT | Continuity of Care Document ---
:1995 Author Organization [facility] t Address [address] [facility] [address] [place] [address] Care Team Providers Name Role Phone PCP, [...] Active Univers ALLERGIE Class ity of S [facility] Social History Social Habit Start Date Stop Date Quantity Comments Source [facility] Sexual orientation Univer [facility] Exposure to 2022-04-24 2022-05-04 Not sure [facility] SARS-CoV-2 (event) 00:00:00 19:02:00 Medica l Branch Sex Assigned At [birth year] [facility] 00:00:00 00:00:00 Medical Branch Smoking Status Start Date Stop Date Source Tobacco smoking consumption [facility] unknown Branch Medications Ordered Filled Start Stop Current Ordering Indication Dosage Frequency Signature Comments Components Source Medication Medication Date Date Medication? Clinician (SIG) Name Name ketorolac 2022- No 30mg 30 mg, Unive rs (TORADOL) 01-11 Intramuscu ity of injection 03:15: 02:44 lar, ONCE, [place] 30 mg 00 :00 1 dose, On [facility] Branch 01/10/23 at 2215, Routine methylPREDN Yes [id number] Take by Univers ISolone 8-10 mouth ity of (MEDROL, 00:00: SEE-INSTRU Omar as LICHA,) 4 mg 00 CTIONS. Medica l tablets follow Branch package directions cyclobenzap Yes [id number] 10mg Take 1 Univers rine 10 mg 8-10 tablet by ity of tablet 00:00: mouth [place] 00 every 8 Medical (eight) Branch hours as needed for Muscle Spasms. ketorolac 2022- No 30mg 30 mg, Unive rs (TORADOL) 12-21 Intramuscu ity of injection 01:15: 00:13 lar, ONCE, [place] 30 mg 00 :00 1 dose, On Medical [facility] Branch 12/20/22 at 2015, Routine acetaminoph 2022-0 [...] at 2000, 1 mL benzonatate 2021-06 Yes [id number] 100mg Take 1 Univers 100 mg 2-02 capsule by ity of capsule 00:00: mouth 3 [place] 00 (three) Medical times Branch daily as needed for Cough. benzonatate 2021-06 Yes [id number] 100mg Take 1 Univers 100 mg 2-02 capsule by ity of capsule 00:00: mouth 3 [place] 00 (three) Medical times Branch daily as needed for Cough. benzonatate 2021-06 Yes [id number] 100mg Take 1 Univers 100 mg 2-02 capsule by ity of capsule 00:00: mouth 3 [place] 00 (three) Medical times Branch daily as needed for Cough. cefdinir 2021-06 No [id number] 300mg Take 1 U nivers 300 mg 07-05- capsule by ity of capsule 00:00: 05:59 mouth in [place] 00 :00 the Medical morning Branch and 1 capsule in the evening. Do all this for 10 days. predniSONE 2021-06 No [id number] 20mg Take 1 Univers 20 mg -07 15-07 tablet by ity of tablet 00:00: 05:59 mouth in [place] 00 :00 the Medical morning Branch and [...] 05/16/21 at 1999, Routine naproxen 2020-06 Yes [id number] 500mg Take 1 U nivers (NAPROSYN) 2-14 [...] Indication s: acute pain naproxen 2020-06 Yes [id number] 500mg Take 1 U nivers (NAPROSYN) 2-14 [...] Indication s: acute pain naproxen 2020-06 Yes [id number] 500mg Take 1 U nivers (NAPROSYN) 2-14 tablet by ity of 500 mg 00:00: mouth 2 [place] tablet 00 (two) Medical times Branch daily with meals. naproxen 2020-06 Yes [id number] 500mg Take 1 U nivers (NAPROSYN) 2-14 [...] 2023-01-11 04:00:00 78 /min Universi ty of [facility] Respiratory rate 2023-01-11 04:00:00 16 /min Univ ersity of [facility] Oxygen saturation in 2023-01-11 04:00:00 98 /min University of Arterial blood by [facility] Pulse oximetry Branch Systolic blood 2023-01-11 01:56:00 120 mm[Hg] Univer sity of pressure [facility] Diastolic blood 2023-01-11 01:56:00 66 mm[Hg] Unive rsity of [facility] Body temperature 2023-01-11 01:56:00 36.89 Patti Univ ersity [facility] Body height 2023-01-11 01:56:00 152.4 cm Universi ty of [facility] Body weight 2023-01-11 01:56:00 74.844 kg Universi ty of [facility] Branch BMI 2023-01-11 01:56:00 32.22 kg/m2 Universi ty of [facility] Oxygen saturation in 2022-12-21 00:09:53 98 /min University of Arterial blood by [facility] Pulse oximetry Branch Systolic blood 2022-12-20 23:36:00 124 mm[Hg] Univer sity of [facility] Diastolic blood 2022-12-20 23:36:00 56 mm[Hg] Unive rsity of [facility] Heart rate 2022-12-20 23:36:00 87 /min Universi ty of [facility] Body temperature 2022-12-20 23:36:00 37.39 Patti Univ ersity of [facility] Branch Respiratory rate 2022-12-20 23:36:00 16 /min Univ ersity of [facility] Body height 2022-12-20 23:36:00 152.4 cm Universi ty of [facility] Body weight 2022-12-20 23:36:00 74.844 kg Universi ty of [facility] BMI 2022-12-20 23:36:00 32.22 kg/m2 Universi ty of [place] [facility] Body height 2022-05-05 01:07:00 152.4 cm Universi ty of [place] [facility] Body weight 2022-05-05 01:07:00 74.844 kg Universi ty of [place] [facility] BMI 2022-05-05 01:07:00 32.22 kg/m2 Universi ty of [place] [facility] Oxygen saturation in 2022-05-05 01:07:00 100 /min University of Arterial blood by [place] [employer] [facility] Pulse oximetry Branch Systolic blood 2022-05-05 01:07:00 140 mm[Hg] Univer sity of pressure [place] [facility] [place] Diastolic blood 2022-05-05 01:07:00 70 mm[Hg] Unive rsity of pressure [place] [facility] [place] Heart rate 2022-05-05 01:07:00 91 /min Universi ty of [place] [facility] [place] Body temperature 2022-05-05 01:07:00 37.17 Patti Univ ersity of [place] [facility] [place] Respiratory rate 2022-05-05 01:07:00 20 /min Univ ersity of [place] [facility] Systolic blood 2021-05-17 00:35:00 121 mm[Hg] Univer sity of pressure [place] [facility] Diastolic blood 2021-05-17 00:35:00 62 mm[Hg] Unive rsity of pressure [place] [facility] [place] Heart rate 2021-05-17 00:35:00 69 /min Universi ty of [place] [facility] [place] Body temperature 2021-05-17 00:35:00 36.78 Patti Univ ersity of [place] [facility] [place] Respiratory rate 2021-05-17 00:35:00 18 /min Univ ersity of [place] [facility] [place] Body height 2021-05-17 00:35:00 152.4 cm Universi ty of [place] [facility] Body weight 2021-05-17 00:35:00 75.297 kg Universi ty of [place] [facility] BMI 2021-05-17 00:35:00 32.42 kg/m2 Universi ty of [place] [facility] [place] Oxygen saturation in 2021-05-17 00:35:00 100 /min University of Arterial blood by [place] [employer] mary Pulse oximetry Branch Procedures Procedure Date / Time Performed Performing Clinician [facility] e ASSIGNMENT OF BENEFITS 2023-01-11 02:55:45 Doctor Unassigned, No [facility] URINALYSIS 2023-01-11 02:43:00 Colby Montes [facility] POCT TEST 2023-01-11 02:43:[address] [facility] [place] NOTICE OF PRIVACY 2023-01-11 01:44:59 Doctor Unassigned, No Univ ersity [facility] Name Medical Branch CONSENT/REFUSAL FOR 2023-01-11 01:43:39 Doctor Unassigned, No Un iversity of [place] DIAGNOSIS AND Name Medical Branch TREATMENT ASSIGNMENT OF BENEFITS 2022-12-21 00:28:40 Doctor Unassigned, No [facility] Medical Branch CONSENT/REFUSAL FOR 2022-12-20 23:29:40 Doctor Unassigned, No Un iversity of [place] DIAGNOSIS AND Name Medical Branch TREATMENT RAPID STREP SCREEN FOR 2022-05-05 01:22:00 Marcos Galicia [facility] GROUP A Medical [place] RAPID INFLUENZA A/B 2022-05-05 01:22:00 Marcos Galicia [facility] COVID-19 (ID NOW RAPID 2022-05-05 01:22:00 Marcos Galicia [facility] TESTING) Medical Branch CONSENT/REFUSAL FOR 2022-05-05 00:50:11 Doctor Unassigned, No Un iversity of [place] DIAGNOSIS AND Name Medical Branch TREATMENT NOTICE OF PRIVACY 2022-05-05 00:49:48 Doctor Unassigned, No [facility] 2021-05-17 01:56:00 Jeremiah Huynh [facility] XR LUMBAR SPINE 2 VW 2021-05-17 01:22:16 Jeremiah Huynh [facility] NOTICE OF PRIVACY 2021-05-17 00:03:46 Doctor Unassigned, No Univ ersity of [facility] Name Medical Branch CONSENT/REFUSAL FOR 2021-05-16 23:58:30 Doctor Unassigned, No Un iversity of [place] DIAGNOSIS AND Name Medical Branch TREATMENT Encounters Start End Encounter Admission Attending Care Care Encounter Source Date/Time Date/Time Type Type Clinicians Facility Department ID 2023-01-10 2023-01-10 Emergency X RANI MONTES ERT [id number] Univers 20:52:00 23:31:00 COLBY itlisha [facility] 2023-01-10 2023-01-10 [facility] [id number] Univers 20:52:00 23:31:00 Colby BACA 350.1.13.10 i ty of [place] 4.2.7.2.686 [facility] [id number] [address] 2022-12-20 2022-12-20 Emergency [facility] [id number] Univers 18:38:00 20:42:00 ROXIE lees [facility] 2022-12-20 2022-12-20 [facility] [id number] Univers 18:38:00 20:42:00 Roxie BACA 350.1.13.10 i ty of [place] 4.2.7.2.686 [facility] [id number] [address] 2022-05-04 2022-05-04 Emergency [facility] [id number] Univers 19:09:00 20:34:00 MARCOS [facility] 2022-05-04 2022-05-04 Emergency [facility] [id number] Univers 19:09:00 20:34:00 Marcos BACA 350.1.13.10 i ty of [place] 4.2.7.[address] [place] [id number] 2021-05-16 2021-05-16 Emergency [facility] [id number] Univers 18:37:00 21:15:00 JEREMIAH lisha [facility] 2021-05-16 2021-05-16 Emergency [facility] [id number] Univers 18:37:00 21:15:00 Jeremiah VANNTON 350.1.13.10 i ty [facility] 4.2.7.2.686 [facility] [id number] [address] Results Test Description Test Time Test Comments Results Result Comments Source POCT TEST 2023-01-11 02:43:00 Test Item Value Reference Range Interpretation Comme nts POCT PREG (test code = 1605) Negative On board controls acceptable with C Line (test code = 3574) Yes Lab Interpretation (test code = 91317-9) Normal [facility] [place] [facility] [id number] 01:56:00 Test Item Value Reference Range Interpretation Comments POCT PREG (test code = 1605) negative On board controls acceptable with present C Line (test code = 3574) POCT PREG LOT # (test code = 3575) [id number] POCT PREG TEST DATE (test 07/03/2022 code = 3576) Lab Interpretation (test code = Normal 21609-5) [facility] [place] [facility] Notes Date/Time Note Provider Source 2023-01-10 23:29:44 7754-06-22O61:29:44Formatting [facility] of this note might be different from the original.Pt discharged home. Given all education and information regarding prescriptions; pain management; s/s of worsening condition as well as specialty follow up importance. Pt verbalized understanding. Alert and ambulatory to pov with spouse. 78539-4Fcmdadeut department KlqaPG0000-68-61N30:31:29[facility] department NoteTXT1.2.840.208087.1.13.104. 2.7.2.496553|[id number] [facility] dxrm85618-4LxuqVEIGWQFRWK[address] Riley StreetTXTX[address] 17739BXWAGIOYYOICZTGSQUUCRT3386 -08-10T23:31:291.2.840.932014.1 .72.3.15|1.2.840.855418.1.13.10 4.2.7.2.727879_[id number] 2023-01-10 20:53:48 1368-36-65R26:53:48Formatting Joshua Mtz RN [facility] of this note might be different from the original.Pt to ed via pov. Alert and ambulatory. C/o aching pain in both legs and states that when she touches her skin it feels like it is going to rip off. 24114-2Zpkkgrbbo department Triage drbsGY8372-22-28L85:55:12[facility] department Triage noteTXT1.2.840.777779.1.13.104. 2.7.2.082162|[id number] ble for patient upgb24456-9Xbjukoeez department [id number] A Paul RNUT[address]vdGalvestonGalvestonTXTX[address] 50260UYWWRWQNWOXXMWTPUCSIZN7850 -08-10T20:55:121.2.840.362307.1 .72.3.15|1.2.840.557460.1.13.10 4.2.7.2.727879_[id number] 2022-12-20 19:32:29 3721-65-90M67:32:29Formatting Marlee singer RN [facility] of this note might be different from the original.Pt given printed and verbal discharge instructions regarding cellulitis of right lower extremity, encouraged hydration,Prescriptions provided: Tylenol #3Discussed ibuprofen and to take with food to avoid GI distress.Discussed antibiotic therapy and to take until all completed unless adverse reaction occurs - if occurs, discontinue medication and follow up with pcp/seek medical attentionDiscussed Tylenol # 3 side affects and to avoid driving/operating machinery/or engaging in activities requiring alertness while taking.Pt verbalized understanding of instructions, pt awake alert oriented, resp reg unlabored, skin w/d, color appropriate for race, moves all ext well,pt encouraged to follow up with pcp and or general surgeonAdvised to seek medical attention for new/prolonged/worsening of symptoms,Symptoms unchangedNo adverse reaction to meds given in ER noted upon dischargeAwake, alert oriented, resp reg unlabored, skin w/d, pt leaving amb with steady gait, in no apparent distress, 93726-4Hyvrrpbmw department LfpeMD7458-65-97K58:33:41[facility] department NoteTXT1.2.840.361314.1.13.104. 2.7.2.235642|[id number] ble for patient [id number] AMargarita White RN[address] StreetTXTX[address] 26143OPONDVRBKXNQVEIHYDMSTI4939 -07-20T19:33:411.2.840.737312.1 .72.3.15|1.2.840.443342.1.13.10 4.2.7.2.727879_[id number] 2022-12-20 18:34:43 8282-92-44I69:34:43Formatting Johann han RN [facility] of this note might be different from the original.Patient CO of cyst upper right thigh that she tried to have lanced at [facility] yesterday but they missed and couldn't get anything to drain from it, states she has had it for years. 07893-1Untljljup department Triage murvLV1095-07-77X28:37:33[facility] Triage noteTXT1.2.840.091281.1.13.104. 2.7.2.607514|[id number] ble for patient [id number] R Moss RNUT[address] Stout StreetTXTX[address] 94289LYEZNLTLOUHFBQBVVOISYM4335 -07-20T18:37:331.2.840.800705.1 .72.3.15|1.2.840.395372.1.13.10 4.2.7.2.727879_[id number] 2022-12-20 18:28:00 2528-55-06U40:28:00Formatting [facility] of this note is different from the original.Images from the original note were not included.EMERGENCY DEPARTMENT ENCOUNTERFormerly [facility] HospitalPatient Name: Yolette Mcghee of : 1995 27 year oldMRN: [id number] Room:[address] Care Physician: PATIENT DOES NOT HAVE A [facility] Patient Escorted by: Self [9]Mode of Arrival: Personal means [1]EMS Treatment Prior to ED Arrival: ED Events Date/Time Event User Comments 12/20/221899 Medical Screening Begins ROXIE COOPER MD -- 12/20/221899 First Provider Evaluation ROXIE COOPER MD -- Chief Complaint Chief Complaint Patient presents with Cyst ED Triage Notes Johann Little RN 12/20/2022 18:37 Patient CO of cyst upper right thigh that she tried to have lanced at [facility] yesterday but they missed and couldn't get anything to drain from it, states she has had it for years. HPI History provided by: PatientIllnessLocation: Righ upper leg cellulitisSeverity: ModerateOnset quality: GradualDuration: 12 monthsTiming: ConstantChronicity: NewRelieved by: NothingWorsened by: NothingAssociated symptoms: no abdominal pain, no chest pain, no cough, no fatigue, no fever, no headaches, no nausea, no shortness of breath, no vomiting and no wheezing Past Medical History / Immunizations No past medical history on file. Past Surgical History No past surgical history on file.Allergies Allergies Allergen Reactions Dilaudid [Hydromorphone] Itching Hydrocodone Itching Social History Substance & Sexual Activity No substance use or sexual activity history on file. Review of Systems Review of Systems Constitutional: Negative. Negative for chills, fatigue, fever and unexpected weight change. HENT: Negative. Eyes: Negative. Negative for discharge and itching. Respiratory: Negative. Negative for cough, chest tightness, shortness of breath and wheezing. Cardiovascular: Negative. Negative for chest pain and palpitations. Gastrointestinal: Negative. Negative for abdominal distention, abdominal pain, nausea and vomiting. Genitourinary: Negative. Negative for dysuria, urgency, frequency and flank pain. Musculoskeletal: Negative. Skin: Negative. Negative for color change, pallor and wound. Neurological: Negative. Negative for dizziness, syncope, light-headedness and headaches. Psychiatric/Behavioral: Negative. Negative for agitation and behavioral problems. All other systems reviewed and are negative.Endocrine: Endocrine negativePhysical Exam ED Triage Vitals [12/20/22 1836] Weight 74.8 kg (165 lb) Actual or estimated Actual Height 1.524 m (5') BP 124/56 Pulse 87 Resp 16 Temp 37.4 ?C (99.3 ?F) Temp source Oral SpO2 Measured on Physical ExamVitals reviewed. Constitutional: Appearance: She is well-developed. HENT: Head: Normocephalic and atraumatic. Nose: Nose normal. Eyes: Conjunctiva/sclera: Conjunctivae normal. Neck: Trachea: No tracheal deviation. Cardiovascular: Rate and Rhythm: Normal rate and regular rhythm. Heart sounds: Normal heart sounds. No murmur heard. No friction rub. Pulmonary: Effort: Pulmonary effort is normal. No respiratory distress. Breath sounds: Normal breath sounds. No stridor. No wheezing or rales. Abdominal: General: Bowel sounds are normal. There is no distension. Palpations: Abdomen is soft. Tenderness: There is no abdominal tenderness. There is no guarding or rebound. Musculoskeletal: Cervical back: Normal range of motion and neck supple. Legs:Skin: General: Skin is warm and dry. Neurological: Mental Status: She is alert and oriented to person, place, and time. Cranial Nerves: No cranial nerve deficit. Sensory: No sensory deficit. Psychiatric: Behavior: Behavior normal. Thought Content: Thought content normal. Judgment: Judgment normal. Labs Lab Results - No data to displayImaging No orders to display Orders and Treatments No orders of the defined types were placed in this encounter.No orders of the defined types were placed in this encounter.Procedures ProceduresNotes & MDM Patient was evaluated for an emergency medical condition related to Cyst.History and/or review of systems is limited by:History limited: None.Diagnosis/Impression as of 12/20/221911 Cellulitis of right lower extremity Medical Decision MakingLimitations to patient care and compliance: none.Assessment/Summary:History , physical exam findings, results of visit, differential diagnosis, medication regimens and plan of future care have been considered. Additional MDM may be found in the ED course. Differential diagnosis considered and final disposition made based on information gathered during evaluation and may not be completely ruled out or specifically listed. Vital signs were rechecked before final disposition.Diagnosis Final diagnoses: None Disposition & Follow Up ED Disposition None Patient's Medications START taking these medications No medications on file CONTINUE taking these medications which have NOT CHANGED ACETAMINOPHEN-CODEINE 300-30 MG TABLET Take 1 tablet by mouth [...] medications No medications on file Roxie Cooper Jr. MDClinical Sales Compensation Analyst [facility] Emergency DepartmentDragon Dictation Software is used frequently and may produce errors. Promptly contact for obvious discrepancies. Roxie Cooper MD12/20/221914 85070-8Kgtlsrgxx Emergency department TiftOI6169-25-92S05:15:58Physic abhishek Emergency department NoteTXT1.2.840.562182.1.13.104. 2.7.2.682673|[id number] [facility] [address] UkutMkqjdbugxEilrlgxopDOGY34979 11974BLXHTHZFUCSAVABXYRIYDA5394 -07-20T19:15:581.2.840.401676.1 .72.3.15|1.2.840.857644.1.13.10 4.2.7.2.727879_[id number]"
--- NOTE | 2023-04-30 20:40 | RAD REPORT ---
EXAM DESCRIPTION: Melanie Mares (2 Views)04/30/2023 8:26 pm CLINICAL HISTORY: Cough COMPARISON: April 03, 2023 FINDINGS: The lungs appear clear of acute infiltrate. The heart is normal size IMPRESSION: No acute abnormalities displayed
--- NOTE | 2023-04-30 21:29 | EDPHYS ---
Physician Documentation [facility] Name: Yolette Ku Age: 28 yrs Sex: Female : 1995 Arrival Date: 04/30/2023 Time: 18:37 Bed DX4 Private MD: ED Physician Sung Lugo HPI: 04/30 20:05 This 28 yrs old Female presents to ER via Ambulatory with complaints of COVID Positive. cp 20:05 The patient or guardian reports cough, that is intermittent, with productive sputum. cp Associated signs and symptoms: Pertinent positives: fever, nausea, sore throat, body aches. Patient reports testing positive for COVID-19 this past Saturday with symptoms starting the 1-2 days before. Patient reports worsening cough. 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 - Social history:: Smoking status: Reported history of juuling and/or vaping. Patient uses alcohol, occasionally. Patient/guardian denies using street drugs. ROS: 20:10 Constitutional: Positive for body aches, fever, Negative for poor PO intake, cp 20:10 Eyes: Negative for injury, pain, redness, and discharge, cp 20:10 ENT: Positive for sore throat, Negative for drainage from ear(s), ear pain, difficulty swallowing, difficulty handling secretions, 20:10 Respiratory: Positive for cough, shortness of breath, Negative for wheezing, 20:10 Abdomen/GI: Positive for nausea, Negative for vomiting, diarrhea, constipation, 20:10 : Negative for urinary symptoms, 20:10 Neuro: Negative for altered mental status, weakness, 20:10 All other systems are negative, Exam: 20:15 Constitutional: The patient appears in no acute distress, alert, awake, non-toxic, well cp developed, well nourished, 20:15 Head/Face: Normocephalic, atraumatic. cp 20:15 Eyes: Periorbital structures: appear normal, Conjunctiva: normal, no exudate, no injection, Lids and lashes: appear normal, bilaterally, 20:15 ENT: External ear(s): are unremarkable, Ear canal(s): are normal, clear, TM's: bulging, is not appreciated, bilaterally, dullness, bilaterally, erythema, is not appreciated, bilaterally, Nose: nasal drainage, that is minimal, Mouth: Lips: moist, Oral mucosa: moist, Posterior pharynx: Airway: no evidence of obstruction, patent, Tonsils: with erythema, no enlargement, no exudate, erythema, that is mild, exudate, is not appreciated, 20:15 Neck: ROM/movement: is normal, is supple, no meningismus, no nuchal rigidity, 20:15 Chest/axilla: Inspection: normal, 20:15 Cardiovascular: Rate: normal, Rhythm: regular, 20:15 Respiratory: the patient does not display signs of respiratory distress, Respirations: labored breathing, is not present, Breath sounds: decreased breath sounds, are not appreciated, stridor, is not appreciated, wheezing: is not appreciated, 20:15 Abdomen/GI: Exam negative for discomfort, distension, guarding, Inspection: abdomen appears normal, 20:15 Skin: no rash present. Vital Signs: 19:56 BP 136 / 75; Pulse 73; Resp 17 S; Temp 98.1(O); Pulse Ox 100% on R/A; Weight 72.57 kg lg3 (R); Height 5 ft. 0 in. (R); 21:50 BP 131 / 74; Pulse 76; Resp 18 S; Pulse Ox 100% on R/A; as6 19:56 Body Mass Index 31.25 (72.57 kg, 152.4 cm) lg3 MDM: 20:00 Patient medically screened. [facility] 21:28 Data reviewed: vital signs, nurses notes, radiologic studies, plain films. cp 21:28 Differential diagnosis: bronchitis, pneumonia. Counseling: I had a detailed discussion cp with the patient and/or guardian regarding the historical points, exam findings, and any diagnostic results supporting the discharge/admit diagnosis, radiology results, to return to the emergency department if symptoms worsen or persist or if there are any questions or concerns that arise at home. ED course: VSS. Patient appears non-toxic and no signs of respiratory distress. Will discharge to home for continued monitoring. 04/30 19:55 Order name: XRAY Chest Pa And Lat (2 Views); Complete Time: 21:27 cp 04/30 21:28 Interpretation: Report reviewed. cp Administered Medications: 21:49 Drug: Ibuprofen PO 800 mg PO once Route: PO; as6 21:50 Follow up: Response: No adverse reaction as6 Disposition Summary: 04/30/23 21:29 Discharge Ordered Notes: Location: Home cp Problem: new cp Symptoms: have improved cp Condition: Stable cp Diagnosis - SARS-associated coronavirus as the cause of diseases classified elsewhere cp Followup: cp - With: Private Physician - When: 2 - 3 days - Reason: Worsening of condition Discharge Instructions: - Discharge Summary Sheet cp - Aspirin and Your Heart cp - Form - Excuse from Work, School, or Physical Activity cp - COVID-19 cp - How to Protect Yourself and Others - [facility] (07/28/2021) cp - 10 Things You Can Do to Manage Your COVID-19 Symptoms at Home - [facility] (12/16/2020) cp - COVID-19: Quarantine and Isolation - [facility] (08/30/2021) cp - COVID-19: What to Do If You Are Sick - [facility] (08/22/2021) cp Forms: - Medication Reconciliation Form cp - Thank You Letter cp - Antibiotic Education cp - Prescription Opioid Use cp - Patient Portal Instructions cp - Leadership Thank You Letter cp Prescriptions: - Bromfed DM 2-30-10 mg/5 mL Oral syrup - administer 10 milliliter ORAL route every 6 hours as needed for cold symptoms; cp 240 milliliter; Refills: 0, Product Selection Permitted - Paxlovid 300 mg (150 mg x 2)-100 mg Oral Tablet, Dose Pack - take 1 dose pack ORAL route as directed on dose pack take TWO 150 mg tablets of cp nirmatrelvir with ONE 100 mg tablet of ritonavir twice daily for 5 days; 30 tablet; Refills: 0, Product Selection Permitted - albuterol sulfate 90 mcg/actuation Inhalation HFA Aerosol Inhaler - inhale 1 puff INHALATION route every 4 to 6 hours as needed for bronchospasm; cp administer via ventilator; 1 unit; Refills: 0, Product Selection Permitted - Ibuprofen 800 mg Oral Tablet - take 1 tablet ORAL route every 8 hours As needed take with food; 30 tablet; cp Refills: 0, Product Selection Permitted Signatures: Dispatcher [employer] Sung Bo MD MD cha Page, Corey, PA PA cp Gibson, Lacie, RN RN lg3 Moses Daly RN RN as6
--- NOTE | 2023-04-30 21:29 | ER ---
Nurse's Notes [facility] Name: Yolette Ku Age: 28 yrs Sex: Female : 1995 Arrival Date: 04/30/2023 Time: 18:37 Bed DX4 Private MD: Diagnosis: SARS-associated coronavirus as the cause of diseases classified elsewhere Presentation: 04/30 19:56 Chief complaint: Patient states: tested covid positive on Saturday with worsening lg3 symptoms. Headache, body aches, runny nose, cough, congestion, SOB. Coronavirus screen: At this time, unable to obtain information related to travel outside the [place] Client presents with at least one sign or symptom that may indicate coronavirus-19. Standard/surgical mask placed on the client. Ebola Screen: No symptoms or risks identified at this time. Initial Sepsis Screen: Does the patient meet any 2 criteria? No. Patient's initial sepsis screen is negative. Does the patient have a suspected source of infection? No. Patient's initial sepsis screen is negative. Risk Assessment: Do you want to hurt yourself or someone else? Patient reports no desire to harm self or others. Onset of symptoms is unknown. 19:56 Method Of Arrival: Ambulatory lg3 19:56 Acuity: JIM 3 lg3 Triage Assessment: 19:57 General: Appears in no apparent distress. uncomfortable, Behavior is calm, cooperative. lg3 Pain: Complains of pain in generalized body aches. EENT: No deficits noted. Reports nasal congestion nasal discharge pain when swallowing. Neuro: No deficits noted. Vo Agitation-Sedation Scale (RASS): 0 - Alert and Calm Level of Consciousness is awake, alert, obeys commands, Oriented to person, place, time, situation. Cardiovascular: No deficits noted. Capillary refill < 3 seconds Clubbing of nail beds is absent JVD is absent Patient's skin is warm and dry. Respiratory: No deficits noted. Reports shortness of breath cough that is Airway is patent Respiratory effort is even, unlabored, Respiratory pattern is regular, symmetrical. GI: No deficits noted. No signs and/or symptoms were reported involving the gastrointestinal system. : No deficits noted. No signs and/or symptoms were reported regarding the genitourinary system. Derm: No deficits noted. No signs and/or symptoms reported regarding the dermatologic system. Skin is intact, is healthy with good turgor, Skin is dry, Skin is normal, Skin temperature is warm. Musculoskeletal: No deficits noted. Circulation, motion, and sensation intact. Range of motion: intact in all extremities. 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 - Social history:: Smoking status: Reported history of juuling and/or vaping. Patient uses alcohol, occasionally. Patient/guardian denies using street drugs. Screenin:[address] [facility] ED Fall Risk Assessment (Adult) Score/Fall Risk Level 0 - 2 = Low Risk. Abuse as6 screen: Denies threats or abuse. Denies injuries from another. Nutritional screening: No deficits noted. Tuberculosis screening: No symptoms or risk factors identified. Vital Signs: 19:56 BP 136 / 75; Pulse 73; Resp 17 S; Temp 98.1(O); Pulse Ox 100% on R/A; Weight 72.57 kg lg3 (R); Height 5 ft. 0 in. (R); 21:50 BP 131 / 74; Pulse 76; Resp 18 S; Pulse Ox 100% on R/A; as6 19:56 Body Mass Index 31.25 (72.57 kg, 152.4 cm) 3 ED Course: 18:40 Patient arrived in ED. im 19:00 Sung Vizcarra PA is PHCP. cp 19:00 Sung Lugo MD is Attending Physician. cp 19:57 Triage completed. lg3 19:57 Arm band placed on right wrist. lg3 20:28 XRAY Chest Pa And Lat (2 Views) In Process Unspecified. EDMS 21:49 Bed in low position. Call light in reach. Provided Education on: follow up, rx teaching.as6 21:49 No provider procedures requiring assistance completed. Patient did not have IV access as6 during this emergency room visit. Administered Medications: 21:49 Drug: Ibuprofen PO 800 mg PO once Route: PO; as6 21:50 Follow up: Response: No adverse reaction as6 Medication: 21:50 VIS not applicable for this client. as6 Outcome: :29 Discharge ordered by . cp :49 Discharged to home ambulatory, with significant other, as6 21:49 Condition: stable :49 Discharge instructions given to patient, Instructed on discharge instructions, follow up and referral plans. medication usage, Demonstrated understanding of instructions, follow-up care, medications, Prescriptions given X 4, :50 Patient left the ED. as6 Signatures: Dispatcher [employer] EDMS Sung Vizcarra PA PA cp Gibson, Lacie RN RN lg3 Moses Daly RN RN as6 Nila Frank
[2023-04-30] MEDS ORDERED: IBUPROFEN 400 MG TAB ONE (22:00)
[2023-04-30 22:19] VITALS: TEMP 98.1; O2SAT 100
[2023-04-30 22:20] VITALS: BP 131/74
== END 2023-04-30 21:50 | disposition home or self-care (01) ==
LOC: ER 18:37
DX: U07.1 COVID-19 (principal)
CPT/HCPCS: 71046; 99283